=== PATIENT | female | born 1970 | race Caucasian/White ===

== ENCOUNTER 2016-07-15 14:46 | Emergency (ER) | payer MEDICAID ==
[2016-05-23 14:51] VITALS: BMI 34.5
[~2016-07-15 14:46] MED LIST: BIOTIN5 MG PO; CALCIUM 600 +1 EAC3 PO; CYCLOBENZAPRINE10 MG PO; DILAUDID2 MG PO; DILAUDID4 MG PO; ELIQUIS2.5 MG PO; HYDROCODONE-APA1 TAB PO; KEFLEX500 MG PO; LEXAPRO20 MG PO; MULTIPLE VITAMI1 TA1 PO; NICODERM C1 PATCH .1 TRANSDERM; NICODERM C1 PATCH .2 TRANSDERM; NORCO 7.5/325 T1 TA1 PO; ROBAXIN-750750 MG PO; SYNTHROID88 MCG PO; VANCOMYCIN250 MG/51 PO
== END 2016-07-15 17:27 | disposition left against medical advice (07) ==
LOC: D.ER 14:46
DX: R42 Dizziness and giddiness (principal)

== ENCOUNTER → 2016-07-28 08:08 | Outpatient (CLI) | payer MEDICAID ==
[2016-05-23 14:51] VITALS: BMI 34.5
== END | disposition home or self-care (01) ==
LOC: D.RAD 08:08
DX: S86.911A Strain of unspecified muscle(s) and tendon(s) at lower leg level, right leg, initial encounter (principal)

== ENCOUNTER → 2016-10-19 18:22 | Outpatient (CLI) | payer MEDICAID ==
[2016-05-23 14:51] VITALS: BMI 34.5
== END | disposition home or self-care (01) ==
LOC: D.MAMMO 14:00
DX: N64.4 Mastodynia (principal)

== ENCOUNTER → 2016-10-21 07:37 | Outpatient (CLI) | payer MEDICAID ==
[2016-05-23 14:51] VITALS: BMI 34.5
== END | disposition home or self-care (01) ==
LOC: D.RAD 07:37
DX: M25.511 Pain in right shoulder (principal)

== ENCOUNTER 2016-12-08 05:40 | Day surgery (SDC) | payer MEDICAID ==
[2016-12-07 13:26] LABS: HEMATOCRIT 43.5 % (36.0-48.0); MCH 34.3 pg (26.0-34.0); MCHC 34.5 g/dL (31.0-37.0); MCV 99.5 fL (80.0-100.0); MEAN PLATELET VOLUME 10.4 fL (7.4-10.4); RBC 4.37 10x6/uL (4.00-5.40); RDW 13.2 % (11.5-14.5); WBC 7.8 10x3/uL (4.8-10.8)
[~2016-12-08] VITALS: Ht 165.1 cm; Wt 93.0 kg
--- NOTE | ~2016-12-08 | OP ---
PATIENT NAME: CHAD PARKER MEDICAL RECORD: [id number] :68 LOCATION:D.OPS ADMISSION DATE: SURGEON: CHUCK NOGUEIRA MD DATE OF OPERATION: 12/08/2016 PREOPERATIVE DIAGNOSIS: Rotator cuff tear of the right shoulder, status post total shoulder arthroplasty. POSTOPERATIVE DIAGNOSIS: Rotator cuff tear of the right shoulder, status post total shoulder arthroplasty. PROCEDURES: 1. Right shoulder arthroscopy with arthroscopic evaluation. 2. Open rotator cuff repair. SURGEON: Chuck Nogueira MD. ANESTHESIA: General. INTRAOPERATIVE COMPLICATIONS: None. SUMMARY OF PATHOLOGIC FINDINGS: The total shoulder arthroplasty appeared to be well fixed as did the glenoid component. The patient did have a rotator cuff tear that was visualized from the implant surface side; however, it required mini arthrotomy for rotator cuff repair. OPERATIVE SUMMARY IN DETAIL: After obtaining the appropriate preoperative orthopedic surgery consent as well as anesthetic consultation, evaluation and clearance, the patient was brought to the operating room and placed on the operating table in supine position. After general laryngeal mask was administered, the patient was placed in the left lateral decubitus position. All pressure points were well padded to include down leg peroneal pad as well as axillary roll. The patient was held firmly to the operating table using the vacuum pack suction system. Right upper extremity and shoulder were prepped and draped in routine sterile fashion. The arm was held in the Arthrex traction boom at 30 degrees of forward flexion, 30 degrees of abduction with 10 pounds of traction laterally. Arthroscopy was established in the glenohumeral joint from a posterior portal. Anterior portal was established in the anterior safe interval. Diagnostic arthroscopy did reveal the above findings, that is, the prosthesis and the glenoid component appeared to be stable without looseness. Attention was then turned to the subacromial space. While on the subacromial space, the patient had substantial amounts of scar tissue and adhesions. At this point, the decision was made to proceed with the mini arthrotomy. Anterolateral mini arthrotomy was created, taken down to the superficial and deep deltoid fascia for direct visualization of the rotator cuff tear. Combination of rongeurs, knife as well as the arthroscopic shaver were utilized to debride the rotator cuff and decorticate the lateral portion of the greater tuberosity. The prosthesis itself did not seem to be proud in any way. Two #2 FiberTapes were placed in an inverted mattress style fashion and each were anchored laterally with a 5.5 SwiveLock from Arthrex down both the anterior and posterior to the stem with good fixation. This resulted in excellent anatomic repair of the rotator cuff. Having completed this, the wound was copiously irrigated. Superficial and deep fascia were closed with #1 Vicryl, followed by 2-0 Vicryl and skin mine. Sterile dressings were applied. The patient was awakened and taken to the recovery room in stable condition. All final needle OPERATIVE REPORT [id number] CHAD PARKER and sponge counts were correct. TRANSINT:[id number] Voice Confirmation ID: [id number] DOCUMENT ID: [id number] MIRLANDE VARGAS, CHUCK REYES CC: [id number] DICTATION DATE: 12/08/161057 [facility] ATTENDANT: 12/08/162052 [facility] 12/08/16 [id number] [place] [address]
[~2016-12-08 05:40] MED LIST changes: +ATIVAN1 MG PO; +OXYCONTIN10 MG PO; +TRAZODONE HCL50 MG PO
[2016-12-08 07:25] VITALS: BP 116/71; Ht 165.1 cm; Wt 93.0 kg
[2016-12-08] MEDS ORDERED: OMEPRAZOLE40 MG PO (07:35)
[2016-12-08] MEDS ORDERED: PERCOCET 10/3251 TA1 PO (10:54)
--- NOTE | 2016-12-08 12:45 | NUR ---
1215 IV DC WITH CATHER TIP INTACT
== END 2016-12-08 13:10 | disposition home or self-care (01) ==
LOC: D.OPS 05:40 → D.PAN 07:30 → D.OPS 07:30
PROVIDERS: Anesthesiology
DX: M75.101 Unspecified rotator cuff tear or rupture of right shoulder, not specified as traumatic (principal); Z96.611 Presence of right artificial shoulder joint; Z01.812 Encounter for preprocedural laboratory examination

== ENCOUNTER 2017-01-21 13:25 | Emergency (ER) | payer MEDICAID ==
[2016-12-08 07:25] VITALS: BMI 34.1
[~2017-01-21 13:25] MED LIST changes: +OMEPRAZOLE40 MG PO; +PERCOCET 10/3251 TA1 PO
== END 2017-01-21 15:30 | disposition home or self-care (01) ==
LOC: D.ER 13:25
DX: F32.9 Major depressive disorder, single episode, unspecified (principal); Z86.59 Personal history of other mental and behavioral disorders; R11.0 Nausea; E03.9 Hypothyroidism, unspecified

== ENCOUNTER → 2017-03-23 13:16 | Outpatient (CLI) | payer MEDICAID ==
[2016-12-08 07:25] VITALS: BMI 34.1
[~2017-03-23 13:16] MED LIST changes: +SYNTHROID125 MCG PO; -SYNTHROID88 MCG PO
== END | disposition home or self-care (01) ==
LOC: D.MRI 13:16
DX: M54.16 Radiculopathy, lumbar region (principal)

== ENCOUNTER 2017-04-11 10:50 | Day surgery (SDC) | payer MEDICAID ==
[2017-04-11] MEDS ORDERED: HYDROCODONE-APA1 TAB PO (11:27)
[2017-04-11 11:34] VITALS: BMI 30.3
--- NOTE | 2017-04-12 10:11 | PRO ---
PATIENT:CHAD MOULTON MEDICAL RECORD: [id number] : 68 LOCATION:[facility] ADMISSION DATE: 04/11/17 PROCEDURE PERFORMED BY: MAGGIE RINCON MD DATE OF PROCEDURE: 04/11/2017 Ms. Moulton is a 46-year-old female, who is referred by Dr. Tom Hayden for left leg radiculopathy and hip pain. 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 The patient relates that she is having hip discomfort and some radiation into her left leg. The patient has been seen by Dr. Tom Hayden and worked up. MRI of the back suggests that patient has significant disc disease along multiple levels from T12-L1, L1-L2, L4-L5 and L5-S1. The patient has illtc-qg-yaxxmdcw bulging discs along those levels with no impingement on cord though. The patient presents today with a pain level of 8/10. The patient does relate that it has been there for about 3 months. The patient is looking for resolution and evaluation of pain. After evaluating the patient, it should be noted that the patient is currently on no anticoagulation medication. THE PATIENT HAS ALLERGIES TO BACTRIM, ERYTHROMYCIN, PEPCID AND LATEX. The patient currently also has no heart disease, cardiovascular or lung disease. The patient is a well-proportioned female. Risks and benefits were explained to the patient including risk of infection, bleeding and damage to underlying structures. The patient understands and accepts. The patient has had an epidural in the past for labor and understands the risk involved. The patient was placed in sitting position, Betadine prepped and draped. The patient had local anesthetic of 1% lidocaine used to raise a skin wheal over the L4-L5 area. A total of 10 mL of solution was injected which included 0.25% bupivacaine along with 80 mg Depo-Medrol and approximately 5 mL of sterile saline to bring it to a total volume of 10 mL. The epidural space was located with a loss of resistance technique with 17-gauge Tuohy needle. After loss of resistance location of the epidural space, the solution of 10 mL was injected via the Tuohy needle into the epidural space at that time. Needle was removed. The patient tolerated the procedure well. Upon examination, I also felt that the patient may have some SI joint involvement on the left side. Palpation over the SI joint elicited severe discomfort. Discussed the patient SI joint injection and she said absolutely. Risks and benefits again were explained with the patient. The patient consents to have the SI joint injected on the left side. We were able to use another 10 mL of 0.25% bupivacaine along with 80 mg Depo-Medrol. After skin wheal, a 1% lidocaine was raised over the left SI joint area and a 22-gauge spinal needle was then used under ultrasound guidance to locate the left SI joint and the medication of 0.25% bupivacaine along with 80 mg Depo-Medrol 10 mL was injected into the left SI joint area. The patient seemed to respond to the therapy and discomfort diminished from 8/10 to 4/10 after injection series. It should be noted that the patient is to be followed up in 1 week. The patient was discharged home. The patient tolerated the procedure well. TRANSINT:[id number] Voice Confirmation ID: [id number] DOCUMENT ID: [id number] PROCEDURE NOTE [id number] CHAD MOULTON FARRELL MD at 1011 CC: [id number] DICTATION DATE: 04/11/17 1428 BOX LIDDER: 04/11/17 2257 [facility] 04/11/17 [address] [place] [address]
== END 2017-04-11 13:55 | disposition home or self-care (01) ==
LOC: D.OPS 10:50
DX: M53.3 Sacrococcygeal disorders, not elsewhere classified (principal)

== ENCOUNTER 2017-04-19 12:45 | Day surgery (SDC) | payer MEDICAID ==
[2017-04-19 14:24] VITALS: BP 134/95; BMI 30.3
== END 2017-04-19 14:30 | disposition home or self-care (01) ==
LOC: D.OPS 12:45
DX: M53.3 Sacrococcygeal disorders, not elsewhere classified (principal); Z01.812 Encounter for preprocedural laboratory examination

== ENCOUNTER 2017-04-26 11:43 | Day surgery (SDC) | payer MEDICAID ==
[2017-04-26 12:46] VITALS: BP 114/71; BMI 30.3
== END 2017-04-26 14:10 | disposition home or self-care (01) ==
LOC: D.OPS 11:43
DX: M53.3 Sacrococcygeal disorders, not elsewhere classified (principal); M54.5 Low back pain

== ENCOUNTER → 2017-05-03 12:49 | Day surgery (SDC) | payer MEDICAID ==
[~2017-05-03] VITALS: Ht 165.1 cm; Wt 98.2 kg
[2017-05-03 14:01] VITALS: BP 124/70; Ht 165.1 cm; Wt 98.2 kg
== END | disposition home or self-care (01) ==
LOC: D.OPS 12:49
DX: S39.012A Strain of muscle, fascia and tendon of lower back, initial encounter (principal); Z01.812 Encounter for preprocedural laboratory examination

== ENCOUNTER → 2017-10-02 10:40 | Outpatient (CLI) | payer MEDICAID ==
[2017-05-03 14:01] VITALS: BMI 36.0
== END | disposition home or self-care (01) ==
LOC: D.NM 10:40
DX: M53.3 Sacrococcygeal disorders, not elsewhere classified (principal); M25.551 Pain in right hip

== ENCOUNTER → 2018-01-22 16:46 | Outpatient (CLI) | payer MEDICAID ==
[2017-05-03 14:01] VITALS: BMI 36.0
== END | disposition home or self-care (01) ==
LOC: D.MRI 16:46
DX: M54.16 Radiculopathy, lumbar region (principal)

== ENCOUNTER 2018-03-08 10:31 | Emergency (ER) | payer MEDICAID ==
[~2018-03-08] VITALS: Ht 165.1 cm; Wt 87.7 kg
[2018-03-08 10:40] VITALS: BP 150/92; Ht 165.1 cm; Wt 87.7 kg
== END 2018-03-08 14:36 | disposition home or self-care (01) ==
LOC: D.ER 10:31
DX: M79.1 Myalgia (principal); M25.551 Pain in right hip; F17.200 Nicotine dependence, unspecified, uncomplicated

== ENCOUNTER 2018-03-09 05:18 | Emergency (ER) | payer MEDICAID ==
[~2018-03-09] VITALS: Ht 165.1 cm; Wt 87.7 kg
[2018-03-09 05:23] VITALS: Ht 165.1 cm; Wt 87.7 kg
[2018-03-09 07:52] VITALS: BP 142/89
== END 2018-03-09 07:53 | disposition home or self-care (01) ==
LOC: D.ER 05:18
DX: M79.1 Myalgia (principal); M25.551 Pain in right hip; Z91.81 History of falling; F17.200 Nicotine dependence, unspecified, uncomplicated

== ENCOUNTER → 2018-04-09 07:16 | Outpatient (CLI) | payer MEDICAID ==
[2018-03-09 05:23] VITALS: BMI 32.1
== END | disposition home or self-care (01) ==
LOC: D.PT 07:16
DX: S72.111D Displaced fracture of greater trochanter of right femur, subsequent encounter for closed fracture with routine healing (principal); W19.XXXD Unspecified fall, subsequent encounter

== ENCOUNTER 2018-08-09 11:30 | Outpatient (CLI) | payer MEDICARE, MEDICAID ==
[~2018-08-09] VITALS: Ht 165.1 cm; Wt 107.3 kg
--- NOTE | ~2018-08-09 | HEMODYNAMI ---
PATIENT:CHAD PARKER MEDICAL RECORD: [id number] : 68 [id number] ADMISSION DATE: 08/09/18 Generatedon:08/10/20188:02 Patient name: CHAD PARKER Patient #: [id number] SSN: : 1970 Date of study: 08/10/2018 Page: Of Hemodynamic Procedure Report Patient Data Patient Demographics Procedure consent was obtained First Name: CHAD Gender: Female Last Name: ELENA : 1970 Middle Initial: MAE Age: 47 year(s) Patient #: [id number] Race: Unknown Additional ID: [id number] Contact details [address]: [address] [place] [address] State: [place] City: [place] Zip code: [address] Past Medical History Allergies Allergen Reaction Date Comments Reported Other allergy 08/10/2018 BACTRIM, ERYTHROMYCIN, PEPCID,FLONASE, DILAUDID, SULFA, LATEX Admission Admission Data Admission Date: 08/09/2018 Admission Time: 14:17 Room #: D.2119 Lab Results Lab Result Date: 08/10/2018 Lab Result Time: 0:00 Biochemistry Name Units Result Min Max BUN mg/dl 9 --(*---)-- 7 18 Creatinine mg/dl 0.9 --(-*--)-- 0.6 1.3 CBC Name Units Result Min Max Hemoglobin g/dl 15.6 --(--*-)-- 13.5 17.5 Procedure Procedure Types Cath Procedure Diagnostic Procedure LHC LHC w/Coronaries Sedation Charges Moderate Sedation up to 15 minutes PCI Procedure Coronary Stent Coronary Stent Initial Procedure Description Procedure Date Procedure Date: 08/10/2018 Procedure Start Time: 7:35 Procedure End Time: 7:58 Procedure Staff Name Function Catracho Jones MD Performing Physician Renee Kelley RN Nurse Jorden Allen RT Scrub Liliane Santiago RT Monitor Procedure Data Cath Procedure Fluoroscopy Diagnostic fluoroscopy Total fluoroscopy Time: 5.2 time: 5.2 min min Diagnostic fluoroscopy Total fluoroscopy dose: dose: 1069 mGy 1069 mGy Contrast Material Contrast Material Type Amount (ml) Isovue 300 100 Entry Location Entry Primary Successful Side Size Upsize Upsize Entry Closure Cifuentes ccessful Closure Location (Fr) 1 (Fr) 2 (Fr) Remarks Device Remarks Radial Right 6 Fr Mechanical artery Short Compression Estimated blood loss: 10 ml Diagnostic catheters Device Type Used For End Catheter Placement DIAGNOSTIC Ponemah 110cm 5 Procedure Fr catheter ([id number]) Procedure Complications No complications Procedure Medications Medication Administration Route Dosage Oxygen etCO2 Nasal cannula 2 l/min Lidocaine 2% added to field 20 Heparin Flush Bag added to field 2 bags (1000units/500ml NS) 0.9% NaCl I.V. 100 ml/hr Versed I.V. 2 mg Fentanyl I.V. 100 mcg Versed I.V. 1 mg Fentanyl I.V. 50 mcg Radial Cocktail I.A. 1 syringe (Verapomil 2mg/Nitro 400mcg/Heparin 1500units) Heparin Bolus I.V. 35389 units Versed I.V. 1 mg Fentanyl I.V. 50 mcg Effient P.O. 60 mg Hemodynamics Rest HGB: 15.6 (g/dl) Heart Rate: 77 (bpm) Pressure Samples Time Site Value (mmHg) Purpose Heart Use Rate(bpm) 7:39 LV 115/3,17 Snapshot 73 7:40 AO 105/71(85) Pullback 80 7:40 LV 110/0,18 Pullback 80 Gradients Valve Time Site 1 Site 2 Mean SEP/DFP Peak To Heart Use (mmHg) (sec/min) Peak Rate (mmHg) (bpm) Aortic 7:40 LV AO 4 4 5 80 110/0,18 105/71(85) Calculations Valve P-P Mean Valve Index Valve Source Name Gradient Area Flow (cm2) Aortic 5 4 5 4 Snapshots Pre Cath Intra NCS Post Cath Vital Signs Time Heart Resp SPO2 etCO2 NIBP (mmHg) Rhythm Pain Status Sedation Rate (ipm) (%) (mmHg) Level (bpm) 7:22:36 72 19 94 33 135/86(102) NSR 4 (11) , 10(A) Distressing 7:26:44 77 21 94 29.2 119/82(93) NSR 4 (11) , 10(A) Distressing 7:30:46 74 14 92 22.5 124/79(97) NSR 4 (11) , 10(A) Distressing 7:34:51 72 12 93 35.3 120/76(90) NSR 4 (11) , 10(A) Distressing 7:40:01 94 11 94 19.5 98/66(93) NSR 4 (11) , 9(A) Distressing 7:44:00 74 11 93 33 111/65(93) NSR 4 (11) , 9(A) Distressing 7:48:04 74 12 94 21.8 113/64(96) NSR 4 (11) , 9(A) Distressing 7:52:10 76 13 92 30 111/67(85) NSR 4 (11) , 9(A) Distressing 7:56:10 76 15 94 36 118/78(91) NSR 0 (11) , No 10(A) pain Medications Time Medication Route Dose Verified Delivered Reason Note s Effectiveness by by 7:18:20 Oxygen etCO2 2 l/min Catracho Buffie used for Nasal Robert Kelley RN procedure cannula 7:18:27 Lidocaine 2% added 20ml Catracho Catracho for local to vial Robert Jones MD anesthetic field 7:18:32 Heparin Flush added 2 bags Catracho Catracho used for Bag to Robert Jones MD procedure (1000units/500ml field NS) 7:18:40 0.9% NaCl I.V. 100 Catracho Buffie Per physician ml/hr Robert Kelley RN 7:29:29 Versed I.V. 2 mg Catracho Buffie for sedation Robert Kelley RN 7:29:35 Fentanyl I.V. 100 mcg Catracho Buffie for sedation Robert Kelley RN 7:34:54 Versed I.V. 1 mg Catracho Buffie for sedation Robert Kelley RN 7:34:58 Fentanyl I.V. 50 mcg Catracho Buffie for sedation Robert Kelley RN 7:37:29 Radial Cocktail I.A. 1 Catracho Catracho for (Verapomil syringe Robert Jones MD vasodilation 2mg/Nitro 400mcg/Heparin 1500units) 7:46:24 Heparin Bolus I.V. 10,000 Catracho Buffie for veri fied units Jones MD Kelley RN anticoagulation with dr jones 7:51:38 Versed I.V. 1 mg Catracho Duran for sedation Robert Kelley RN 7:51:42 Fentanyl I.V. 50 mcg Catracho Duran for sedation Robert Kelley RN 7:58:53 Effient P.O. 60 mg Catracho Duran for Robert Kelley RN antiplatelet therapy Procedure Log Time Note 7:01:06 Signed procedure consent form obtained from patient. 7:01:08 Diagnostic Cath status Elective 7:01:09 Time tracking: Regular hours (M-F 7:00 - 5:00) 7:01:15 Plan of Care:Hemodynamics will remain stable., Cardiac rhythm will remain stable., Comfort level will be maintained., Respiratory function will remain adequate., Patient/ family verbilizes understanding of procedure., Procedure tolerated without complication., Recovers from procedure without complications.. 7:01:22 Renee Kelley RN sent for patient. Start room use. 7:02:37 H&P Date Dictated: 08/09/2018 Within 30 days and on chart.. 7:04:50 Patient allergic to Other allergyBACTRIM, ERYTHROMYCIN, PEPCID,FLONASE, DILAUDID, SULFA, LATEX 7:05:58 Lab Result : Creatinine 0.9 mg/dl 7:05:58 Lab Result : BUN 9 mg/dl 7:05:58 Lab Result : Hemoglobin 15.6 g/dl 7:10:11 Patient received from Med II to CCL 1 Alert and oriented. Tansferred to table in Supine position. 7:10:12 Warm blankets applied, and portillo hugger turned on for patient comfort. 7:10:12 Correct patient and procedure confirmed by team. 7:10:13 ECG and BP/O2 sat monitors applied to patient. 7:18:20 Oxygen 2 l/min etCO2 Nasal cannula was administered by Renee Kelley RN; used for procedure; 7:18:27 Lidocaine 2% 20ml vial added to field was administered by Catracho Jones MD; for local anesthetic; 7:18:32 Heparin Flush Bag (1000units/500ml NS) 2 bags added to field was administered by Catracho Jones MD; used for procedure; 7:18:40 0.9% NaCl 100 ml/hr I.V. was administered by Renee Kelley RN; Per physician; 7:21:34 Vital chart was started 7:21:35 Baseline sample Acquired. 7:21:39 Rhythm: sinus rhythm 7:21:40 Full Disclosure recording started 7:21:40 Pre-procedure instructions explained to patient. 7:21:41 Pre-op teaching completed and patient verbalized understanding. 7:21:42 Family in patients room. 7:21:44 Patient NPO since Midnight. 7:21:46 Is patient on blood thinner?No 7:21:48 Patient diabetic? No. 7:21:49 Patient not . Patient has had hysterectomy. 7:21:52 Previous problem with sedation/anesthesia? No ? 7:21:53 Snore? Yes 7:21:54 Sleep apnea? No 7:21:55 Deviated septum? No 7:21:55 Opens mouth fully? Yes 7:21:56 Sticks out tongue? Yes 7:21:58 Airway obstruction? No ? 7:22:09 Dentures? No ? 7:22:13 Modified Alon's test Ulnar < 7 seconds 7:22:15 Patient pain scale 4/10 ?. 7:22:43 IV patent on arrival in left antecubital with 0.9% NaCl at [facility]. 7:22:45 Lab results completed and on chart. 7:22:48 Right Radial & Right Groin area was prepped with chlora-prep and draped in sterile fashion 7:22:49 Alarms reviewed by R. N. 7:22:49 Sharps counted by scrub and verified by R.N. 7:22:52 Use device set Radial Dx or PCI 7:22:53 ACIST Syringe (37025) opened to sterile field. 7:22:53 Medline Cath Pack ([id number]) opened to sterile field. 7:22:54 ACIST Hand Control (87476) opened to sterile field. 7:22:54 ACIST Manifold (08826) opened to sterile field. 7:22:55 Tegaderm 4 x 4 (1626W) opened to sterile field. 7:22:57 Bag Decanter (2001S) opened to sterile field. 7:22:57 DIAGNOSTIC WIRE .035 260cm J wire (463423) opened to sterile field. 7:22:58 MBrace Wrist Support ([id number]) opened to sterile field. 7:22:59 NEEDLE Cook 21G 4cm Radial (O65772) opened to sterile field. 7:23:00 SHEATH 6FR Slender (46-5118) opened to sterile field. 7:: --------ALL STOP TIME OUT------ 7::24 Final Timeout: patient, procedure, and site verified with staff and physician. All members of the team are in agreement. 7:: Right Radial & Right Groin site verified by team. 7:: Fire Safety Assessment: A--An alcohol-based skin anteseptic being used preoperatively., C--Open oxygen or nitrous oxide is being used., D--An ESU, laser, or fiber-optic light is being used. 7::31 Physical assessment completed. ASA score P 2 - A patient with mild systemic disease as per Catracho Jones MD. 7::34 Sedation plan: IV Moderate Sedation Medication:Versed, Fentanyl 7:29:29 Versed 2 mg I.V. was administered by Renee Kelley RN; for sedation; 7::35 Fentanyl 100 mcg I.V. was administered by Renee Kelley RN; for sedation; 7:29:41 Zero performed for pressure channel P1 7:29:52 Zero performed for pressure channel P1 7:29:55 Zero performed for pressure channel P1 7:30:09 Zero performed for pressure channel P1 7:31:45 Zero performed for pressure channel P1 7:34:50 Zero performed for pressure channel P1 7:34:54 Versed 1 mg I.V. was administered by Renee Kelley RN; for sedation; 7:34:58 Fentanyl 50 mcg I.V. was administered by Renee Kelley RN; for sedation; 7:35:18 Procedure started. 7:35:41 Local anesthetic to right radial artery with Lidocaine 2% by Catracho Jones MD.INITIAL ACCESS ONLY 7:36:55 A 6 Fr Short sheath was inserted into the Right Radial artery 7:37:29 Radial Cocktail (Verapomil 2mg/Nitro 400mcg/Heparin 1500units) 1 syringe I.A. was administered by Catracho Jones MD; for vasodilation; 7:37:29 A DIAGNOSTIC Ponemah 110cm 5 Fr catheter (103754) was advanced over the wire and used for Procedure. 7:38:47 Injector settings: Ml/sec: 51, Volume: 15, 7:38:58 LV gram done using GREENE 7:39:22 LV hemodynamics recorded. 7:39:48 EF : 55 % 7:41:08 LCA angiography performed. 7:42:17 RCA angiography performed. 7:42:40 Catheter exchanged over wire. 7:43:08 TUBING High Pressure Extension Tubing (Robert) ([id number]) opened to sterile field. 7:43:09 BMW 300cm Straight [place] 2 wire (1747025) opened to sterile field. 7:43:10 INFLATOR Merit BasixCompak (PN7261) opened to sterile field. 7:43:28 GUIDE 6FR AR 1.0 catheter ([id number]) opened to sterile field. 7:44:46 6 Fr AR 1 guide catheter was inserted over the wire 7:46:24 Heparin Bolus 10,000 units I.V. was administered by Renee Kelley RN; for anticoagulation; verified with dr jones 7:48:29 BMW 300 wire advanced. 7:48:53 Wire advanced across lesion. 7:51:38 Versed 1 mg I.V. was administered by Renee Kellye RN; for sedation; 7:51:42 Fentanyl 50 mcg I.V. was administered by Renee Kelley RN; for sedation; 7:52:22 Place stent Inflation Number: 1 A INTEGRITY OTW 3.5 X 22 stent ([id number]) was prepped and advanced across the Prox RCA. The stent was deployed at 14 NASIM for 0:10 (min:sec). 7:52:42 Stent catheter was removed intact over wire. 7:52:43 Wire removed. 7:52:43 Guide catheter removed. 7:53:29 Procedure ended.(Physican Out) 7:54:46 TR BAND Large ([id number]) opened to sterile field. 7:54:55 Sheath removed intact; hemostasis achieved with Mechanical Compression to the Right Radial artery. 7:55:25 Fluoroscopy time 05.20 minutes. 7:55:30 Fluoroscopy dose: 1069 mGy 7:55:30 Flurop Dose total: 1069 7:55:33 Contrast amount:Isovue 300 100ml. 7:55:38 TR band inflated with 10cc of air. 7:57:08 Post-procedure physical assessment completed. ASA score P 2 - A patient with mild systemic disease as per Catracho Jones MD. 7:57:12 Post procedure rhythm: sinus rhythm 7:57:13 Estimated blood loss: 10 ml 7:57:15 Post procedure instruction explained to patient.Patient verbalizes understanding. 7:57:15 Patient needs reinforcement of post procedure teaching. 7:57:43 Procedure type changed to Cath procedure, Diagnostic procedure, LHC, LHC w/Coronaries, Sedation Charges, Moderate Sedation up to 15 minutes, PCI procedure, Coronary Stent, Coronary Stent Initial 7:58:33 Procedure and supply charges have been captured, reviewed, submitted and are correct. 7:58:35 Procedure Complication : No complications 7:58:37 Vital chart was stopped 7:58:37 See physician's report for complete and final results. 7:58:39 Report given to PCU. 7:58:41 Patient transfered to PCU with Bed. 7:58:43 Procedure ended. 7:58:43 Full Disclosure recording stopped 7:58:46 End room use (Document Last) 7:58:53 Effient 60 mg P.O. was administered by Renee Kelley RN; for antiplatelet therapy; Intervention Summary Intervention Notes Time ActionType Lesion and Equipment Action# Pressure Duration Attributes Used 7:52:22 Place stent Prox RCA INTEGRITY 1 14 00:10 OTW 3.5 X 22 stent ([id number]) Device Usage Item Name Manufacture Quantity Catalog Hospital Part Current Minimal Lot# / Number Charge Number Stock Stock Serial# Code ACIST Acist 1 01613 381520 949939 875959 20 Syringe Medical (36350) Systems Inc Medline Medline 1 [id number] 388665 85611 475604 5 Cath Pack ([id number]) ACIST Hand Acist 1 26776 162479 269116 196719 5 Control Medical (55890) Systems Inc ACIST Acist 1 07647 091864 550249 397751 5 Manifold Medical (96700) Systems Inc Tegaderm 4 3M 1 1626W 501859 510696 295813 5 x 4 (1626W) Bag Microtek 1 2001S 547937 55395 211316 5 Decanter Medical Inc. () DIAGNOSTIC [facility] [place] 1 286024 201363 279686 000506 30 WIRE .035 260cm J wire (184358) MBrace Advanced 1 140-0250-00 752641 48150 945788 5 Wrist Vascular Support Dynamics ([id number]) NEEDLE Cook Cook Medical 1 A73153 031484 844086 858223 5 21G 4cm Radial (C19818) SHEATH 6FR Terumo 1 [id number] 995448 791206 766999 5 Slender (80-1060) DIAGNOSTIC Terumo 1 40-5013 218386 739910 353085 5 Ponemah 110cm 5 Fr catheter (035148) TUBING High Merit 1 [id number] 975928 33803 199413 10 Pressure Medical Extension Tubing (Jones) (MB9415E) BMW 300cm Harris 1 6336929 639346 040938 959369 5 Straight Vascular [place] 2 wire (4128614) INFLATOR Merit 1 DI6794 128087 640765 889329 15 [facility] Medical BasixCompak (AA7812) GUIDE 6FR Medtronic 1 [id number] 652169 88474 929370 1 AR 1.0 catheter (SH9TP74) INTEGRITY Medtronic 1 [id number] 648605 882701 210294 3 [id number] OTW 3.5 X 22 stent ([id number]) TR BAND Terumo 1 [id number] 810726 607591 150485 40 Large ([id number]) Signature Audit [place] Stage Time Signature Unsigned Intra-Procedure 08/10/2018 Liliane Santiago 8:02:00 AM RT(R) Signatures Monitor : Liliane Santiago Signature : RT Date : Time : [facility] [address] [place] [address]
[2018-08-09] MEDS ORDERED: TYLENOL W/CODEI1 TAB PO (11:48)
[2018-08-09] MEDS ORDERED: LIPITOR10 MG PO (11:48)
[2018-08-09 12:25] LABS: BASOPHILS 0.1 % (0-2); EOSINOPHILS 0.8 % (0-7); HEMATOCRIT 45.4 % (36.0-48.0); HEMOGLOBIN 15.6 g/dL (12-16); IMMATURE GRANULOCYTES 0.2 % (0-5); LYMPHOCYTES 29.2 % (15-50); MCH 33.8 pg (26.0-34.0); MCHC 34.4 g/dL (31.0-37.0); MCV 98.5 fL (80.0-100.0); MEAN PLATELET VOLUME 9.6 fL (7.4-10.4); MONOCYTES 10.8 % (2-11); NEUTROPHILS 58.9 % (40-80); PLATELET COUNT 196 10x3/uL (130-400); RBC 4.61 10x6/uL (4.00-5.40); RDW 13.8 % (11.5-14.5); WBC 8.7 10x3/uL (4.8-10.8)
--- NOTE | 2018-08-09 12:32 | NUR ---
NITRO PATCH TO L CHEST
[2018-08-09 12:40] LABS: ALBUMIN 3.6 g/dL (3.4-5.0); ALKALINE PHOSPHATASE 105 U/L (46-116); ALT (SGPT) 35 U/L (10-68); BILIRUBIN - TOTAL 0.29 mg/dL (0.2-1.3); CALC OSMOLALITY 280 mosm/kg (275-300); CALCIUM 9.3 mg/dL (8.5-10.1); CARBON DIOXIDE 22.5 mmol/L (21.0-32.0); CHLORIDE - SERUM 105 mmol/L (98-107); CREATININE - SERUM 0.9 mg/dL (0.6-1.3); GLUCOSE 111 mg/dL (74-106); POTASSIUM - SERUM 3.7 mmol/L (3.5-5.1); PROTEIN - SERUM 7.7 g/dL (6.4-8.2); SODIUM 141 mmol/L (136-145); UREA NITROGEN 9 mg/dL (7-18); eGFR NON AFRICAN AMERICAN 71 mL/min (90-120)
[2018-08-09 12:51] LABS: CKMB 8.9 U/L (0.0-3.6); CREATINE KINASE 467 UL (21-215); TROPONIN-I < 0.017 ng/mL (0.000-0.060)
[2018-08-09 13:24] VITALS: BP 115/66
--- NOTE | 2018-08-09 13:24 | NUR ---
PATIENT RESTING, SEMI FOWLERS. RESPIRATIONS EVEN AND UNLABORED. PT REPORTS CP IS A 3/10. WILL CONTINUE TO MONITOR.
[2018-08-09 16:54] VITALS: BP 136/89; Ht 165.1 cm; Wt 107.3 kg
[2018-08-09 17:12] LABS: CKMB 6.8 U/L (0.0-3.6); CREATINE KINASE 419 UL (21-215); TROPONIN-I < 0.017 ng/mL (0.000-0.060)
[2018-08-09 17:17] LABS: CALC OSMOLALITY 277 mosm/kg (275-300); CALCIUM 9.3 mg/dL (8.5-10.1); CARBON DIOXIDE 23.2 mmol/L (21.0-32.0); CHLORIDE - SERUM 105 mmol/L (98-107); CREATININE - SERUM 0.8 mg/dL (0.6-1.3); GLUCOSE 104 mg/dL (74-106); POTASSIUM - SERUM 4.2 mmol/L (3.5-5.1); SODIUM 140 mmol/L (136-145); UREA NITROGEN 11 mg/dL (7-18); eGFR NON AFRICAN AMERICAN 81 mL/min (90-120)
--- NOTE | 2018-08-09 19:30 | NUR ---
RESUMING PATIENT CARE. PATIENT IS ALERT AND ORIENTED. RESPIRATIONS ARE EVEN AND UNLABORED. NO S/S OF DISTRESS. NO C/O PAIN. DENIES NEEDS AT THIS TIME. CALL LIGHT WITHIN REACH. WILL CPOC.
[2018-08-09 20:00] VITALS: BP 131/98
[2018-08-09 22:43] LABS: BASOPHILS 0.1 % (0-2); EOSINOPHILS 1.9 % (0-7); HEMATOCRIT 41.6 % (36.0-48.0); IMMATURE GRANULOCYTES 0.2 % (0-5); LYMPHOCYTES 36.1 % (15-50); MCH 33.3 pg (26.0-34.0); MCHC 33.7 g/dL (31.0-37.0); MCV 98.8 fL (80.0-100.0); MEAN PLATELET VOLUME 9.6 fL (7.4-10.4); MONOCYTES 12.4 % (2-11); NEUTROPHILS 49.3 % (40-80); PLATELET COUNT 179 10x3/uL (130-400); RBC 4.21 10x6/uL (4.00-5.40); RDW 13.9 % (11.5-14.5); WBC 8.3 10x3/uL (4.8-10.8)
[2018-08-09 23:10] LABS: CKMB 5.5 U/L (0.0-3.6); CREATINE KINASE 357 UL (21-215); TROPONIN-I < 0.017 ng/mL (0.000-0.060)
[2018-08-10 00:50] VITALS: BP 95/58
[2018-08-10 05:35] VITALS: BP 109/65
--- NOTE | 2018-08-10 07:00 | NUR ---
ASSESSMENT DONE. DENIES NEEDS.
--- NOTE | 2018-08-10 07:06 | NUR ---
TO MANAGER WIRELESS PER BED
--- NOTE | 2018-08-10 08:15 | NUR ---
RECIVED FROM CATH WITH TR-BAND TO RIGHT WRIST.
--- NOTE | 2018-08-10 09:45 | MORECARE ---
CASE MANAGEMENT DISCHARGE SUMMARY PATIENT: CHAD PARKER MAE UNIT: [id number] ADM DATE: 08/09/18 AGE: 47 : [birth year] SEX: F ROOM/BED: D.6529 AUTHOR: CELESTINO KULKARNI PHYSICIAN: REFERRING PHYSICIAN: SHARMAINE HUGHES M.D. DATE OF SERVICE: 08/10/18 Discharge Plan Patient Name: CHAD PARKER Facility: [facility]:[place] : 1970 Planned Disposition: Home Anticipated Discharge Date: 08/10/18 Discharge Date: Expected LOS: 1 Initial Reviewer: [email or web address] Initial Review Date: 08/10/2018 Generated: 08/10/18 10:45 am Coverage Notice Reviewer: [email or web address] Mimi Sheets Notice Issued Date-Time: 08/09/2018 14:10 Notice Type: Medicare Outpatient Observation Notice Notice Delivered To: Patient Relationship to Patient: Drink Box Mechanic Name: Delivery Method: HAND - Hand Delivered Damaris Days: Prior Verbal Notification: Recipient Understood Notice: Yes Recipient Signature: Yes Med Rec Note Co-signed by Attending: Coverage Notice Comment: Patient Name: HCAD PARKER Page 53066 at 0945 All edits/amendments must be made on the electronic document DICTATION DATE: 08/10/18944 CONFIGURATION ENGINEER: NORY 08/10/18944 RPT#: [id number] DC DATE: STATUS: ADM IN [facility] [address] [place] [address] END OF REPORT
--- NOTE | 2018-08-10 10:47 | NUR ---
RIGHT WRIST STABLE WITH TR BAND INTACT. TELEMETRY SR 74. WILL CONT. PLAN OF CARE.
[2018-08-10] MEDS ORDERED: EFFIENT10 MG PO (11:06)
[2018-08-10] MEDS ORDERED: TOPROL XL25 MG PO (11:07)
[2018-08-10] MEDS ORDERED: ASPIRIN81 MG PO (11:08)
--- NOTE | 2018-08-10 11:46 | NUR ---
REVIEWED AND AGREE WITH ASSESMENT.
--- NOTE | 2018-08-10 14:02 | NUR ---
DC GIVEN TO PT
--- NOTE | 2018-08-10 14:05 | NUR ---
DC HOME PER PERSONAL CAR
--- NOTE | 2018-08-14 11:18 | EC ---
PATIENT:CHAD PARKER DATE OF SERVICE: 08/09/18 SEX: F MEDICAL RECORD: [id number] DATE OF : 68 LOCATION:D.M2 D.211 AGE OF PATIENT: 47 ADMISSION DATE: 08/09/18 REFERRING PHYSICIAN: INTERPRETING PHYSICIAN: MIREYA RIVERA MD ECHOCARDIOGRAM REPORT ECHO CHARGES 4 ECHO COMPLETE Date: 08/10/18 CLINICAL DIAGNOSIS: CHEST PAIN/CAD ECHOCARDIOGRAPHIC MEASUREMENTS (adult normal given) AC root (d.<3.7cm) 3.4 cm LV Septum d (<1.2 cm> 1.4 cm Valve Excursion 1.4 cm LV Septum (systole) 1.6 cm Left Atria (s.<4.0cm> 3.1 cm LVPW d(<1.2cm) 1.7 cm RV (d.<2.3cm) 3.5 cm LVPW (sytole) 1.7 cm LV diastole(<5.6CM) 5.0 cm MV E-F(>70mm/sec) cm LV systole 3.8 cm LVOT Diameter 2.0 cm MV exc.(>10mm) 1.5 cm Est.ejection fraction (50-75%) % DOPPLER: LVIT cm/sec A 54.0 cm/sec E 42.0 cm/sec LA cm/sec RVSP 21 mmHg LVOT 78 cm/sec AOP1/2T m/s Asc. Ao 103 cm/sec RVOT 75 cm/sec RA cm/sec PA 101 cm/sec AV Gradient Peak 4.27 mmHg AV Mean 2.21 mmHg AV Area 2.3 cm MV Gradient Peak 3.23 mmHg MV Mean 1.21 mmHg MV Area cm COMMENTS: Ship'S Electronic Warfare Officer: Srinath CORTEZ Bread And Pastry Baker: Srinath Jones TAPE# PACS Pericardial Effusion N DATE OF SERVICE: 08/10/2018 Echocardiogram FINDINGS: 1. Left ventricular chamber size is within normal limits. Left ventricular systolic function is normal. Overall ejection fraction estimated at 60%. 2. Left atrium, right atrium, and right ventricle chamber sizes are within normal limits. 3. Valvular structures have normal structure and motion. ECHOCARDIOGRAM REPORT [id number] CHAD PARKER 4. Doppler interrogation reveals only trace tricuspid regurgitation, no other valvular insufficiency, or stenosis and pulmonary systolic pressure is estimated at 21 mmHg. 5. No evidence of pericardial effusion or left ventricular thrombus. TRANSINT:[id number] Voice Confirmation ID: [id number] DOCUMENT ID: [id number] MIREYA RIVERA MD at 1118 CC: [id number] DICTATION DATE: 08/10/18 1515 TEXTILE TECHNICAL OFFICER: 08/10/18 2257 DIS IN 08/10/18 [place] [id number] [place] [address]
== END 2018-08-10 14:05 | disposition home or self-care (01) ==
LOC: OBSVTIME → D.ER 11:30 → D.OPS 11:30 → D.ER 14:17 → D.EDHOLD 14:17 → D.M2 14:17 → D.EDHOLD 14:18 → D.M2 14:18 → OBSVTIME 14:18 → D.ER 15:48 → EDSTATUS 08-10 08:30 → D.OPS 08-10 14:05 → D.M2 08-10 14:05
PROVIDERS: Emergency Medicine; Internal Medicine Cardiovascular Disease
DX: I10 Essential (primary) hypertension (principal); F17.200 Nicotine dependence, unspecified, uncomplicated; I25.110 Atherosclerotic heart disease of native coronary artery with unstable angina pectoris

== ENCOUNTER 2018-10-07 08:16 | Emergency (ER) | payer MEDICARE, MEDICAID ==
[~2018-10-07] VITALS: Ht 165.1 cm; Wt 100.0 kg
[~2018-10-07 08:16] MED LIST changes: +ASPIRIN81 MG PO; +EFFIENT10 MG PO; +LIPITOR10 MG PO; +TOPROL XL25 MG PO; +TYLENOL W/CODEI1 TAB PO
[2018-10-07 08:18] VITALS: Ht 165.1 cm; Wt 100.0 kg
[2018-10-07] MEDS ORDERED: HYDROCODON-ACE1 EAC2 PO (10:10)
[2018-10-07 10:20] VITALS: BP 165/99
== END 2018-10-07 10:20 | disposition home or self-care (01) ==
LOC: D.ER 08:16
DX: S82.401A Unspecified fracture of shaft of right fibula, initial encounter for closed fracture (principal)

== ENCOUNTER 2019-01-12 14:38 | Inpatient (IN) | payer MEDICARE, MEDICAID ==
[~2019-01-12] VITALS: Ht 165.1 cm; Wt 112.2 kg
[2019-01-12] VITALS (12 sets, daily range): BP systolic 124–163; BP diastolic 65–100; Ht 165.1 cm; Wt 112.2 kg
--- NOTE | ~2019-01-12 | HEMODYNAMI ---
PATIENT:CHAD PARKER MEDICAL RECORD: [id number] : 68 [id number] ADMISSION DATE: 01/12/19 Generatedon:01/12/201916:34 Patient name: CHAD PARKER Patient #: [id number] SSN: : 1970 Date of study: 01/12/2019 Page: Of Hemodynamic Procedure Report Patient Data Patient Demographics Procedure consent was obtained First Name: CHAD Gender: Female Last Name: ELENA : 1970 [facility] Initial: MAE Age: 48 year(s) Patient #: [id number] Race: Unknown Additional ID: [id number] Contact details Address: [address] [place] [address] State: [place] City: [place] Zip code: [address] Past Medical History Allergies Allergen Reaction Date Comments Reported Other allergy 08/10/2018 BACTRIM, ERYTHROMYCIN, PEPCID,FLONASE, DILAUDID, SULFA, LATEX Other allergy 01/12/2019 See Chart Admission Admission Data Admission Date: 01/12/2019 Admission Time: 14:38 Admit Source: Emergency department Height (in.): 64.96 BSA: 2.17 (m2) Height (cm.): 165 BMI: 41.62 (kg/m2) Weight (lbs.): 249.79 Weight (kg.): 113.3 Lab Results Lab Result Date: 01/12/2019 Lab Result Time: 0:00 Biochemistry Name Units Result Min Max BUN mg/dl 10 --(-*--)-- 7 18 Creatinine mg/dl 1.1 --(--*-)-- 0.6 1.3 CBC Name Units Result Min Max Hemoglobin g/dl 16.8 --(---*)-- 13.5 17.5 Procedure Procedure Types Cath Procedure Diagnostic Procedure LHC LH w/Coronaries PCI Procedure AMI/SVG/HALL WORKER PTCA or Stent PTCA PTCA Initial Procedure Description Procedure Date Procedure Date: 01/12/2019 Procedure Start Time: 16:00 Procedure End Time: 16:29 Procedure Staff Name Function Renee Kelley RN Nurse Anthony Carl MD Performing Physician Rufus Connelly RT Scrub Claudia Portillo RT Monitor Procedure Data Cath Procedure Fluoroscopy Diagnostic fluoroscopy Total fluoroscopy Time: 5.1 time: 5.1 min min Diagnostic fluoroscopy Total fluoroscopy dose: 851 dose: 851 mGy mGy Contrast Material Contrast Material Type Amount (ml) Isovue 370 93 Entry Location Entry Primary Successful Side Size Upsize Upsize Entry Closure Succes sful Closure Location (Fr) 1 (Fr) 2 (Fr) Remarks Device Remarks Femoral Right 6 Fr Exoseal artery Short Estimated blood loss: 10 ml Diagnostic catheters Device Type Used For End Catheter Placement DIAGNOSTIC JL 4.0 5Fr Procedure catheter ([id number]) DIAGNOSTIC Pigtail 5Fr Procedure catheter ([id number]) Procedure Complications No complications Procedure Medications Medication Administration Route Dosage Oxygen etCO2 Nasal cannula 3 l/min Lidocaine 2% added to field 20 Heparin Bolus I.V. 3000 units Zofran I.V. 4 mg Versed I.V. 2 mg Fentanyl I.V. 100 mcg Atropine I.V. 2 mg Integrilin (Bolus I.V. 10.2 ml 2mg/ml) Integrilin Drip I.V. drip 18.2 ml/hr (75mg/100ml) 0.9% NaCl 100 ml/hr Heparin Flush Bag added to field 2 bags (1000units/500ml NS) Hemodynamics Rest BSA: 2.17 (m2) HGB: 16.8 (g/dl) O2 Consumption: Estimated: 220.81 (ml/min) O2 Co nsumption indexed: Estimated:101.76 (ml/min/m) Heart Rate: 79 (bpm) Pressure Samples Time Site Value (mmHg) Purpose Heart Use Rate(bpm) 16:18 LV 121/31,31 Snapshot 95 16:18 LV 129/31,31 Snapshot 95 16:19 AO 133/87(110) Pullback 95 Gradients Valve Time Site Site 2 Mean SEP/DFP Peak To Heart Use 1 (mmHg) (sec/min) Peak Rate (mmHg) (bpm) Aortic 16:19 LV AO 35 38 95 133/87(110) Calculations Valve P-P Mean Valve Index Valve Source Name Gradient Area Flow (cm2) Aortic 35 35 Snapshots Pre Cath Intra NCS Post Cath Vital Signs Time Heart Resp SPO2 etCO2 NIBP (mmHg) Rhythm Pain Status Sedation Rate (ipm) (%) (mmHg) Level (bpm) 15:57:30 79 11 99 0 Measuring NSR w/ ST 10 (11) , 10(A) Elevation Unimaginable unspeakable 15:58:33 80 18 100 0 186/106(148) NSR w/ ST 10 (11) , 10(A) Elevation Unimaginable unspeakable 16:03:16 81 16 98 0 178/108(150) NSR w/ ST 10 (11) , 10(A) Elevation Unimaginable unspeakable 16:07:44 128 21 99 0 141/99(114) NSR w/ ST 6 (11) , 10(A) Elevation Intense 16:12:15 102 16 94 0 124/84(106) NSR w/ ST 6 (11) , 10(A) Elevation Intense 16:16:37 95 12 96 0 132/84(105) NSR w/ ST 3 (11) , 10(A) Elevation Tolerable 16:21:01 96 24 97 0 138/88(108) NSR w/ ST 3 (11) , 10(A) Elevation Tolerable 16:25:25 93 18 98 0 138/89(115) NSR w/ ST 3 (11) , 10(A) Elevation Tolerable 16:29:50 95 12 98 0 145/100(126) NSR w/ ST 3 (11) , 10(A) Elevation Tolerable Medications Time Medication Route Dose Verified Delivered Reason Notes Effectiveness by by 15:55:02 Oxygen etCO2 3 Anthony Duran used for Nasal l/min St Alan Kelley RN procedure cannula 15:55:09 Heparin Flush added 2 Anthony Cruz used for Bag to bags [facility] procedure (1000units/500ml field MD VARGAS NS) 15:56:06 Lidocaine 2% added 20ml Anthony Cruz for local to vial [facility] anesthetic field MD VARGAS 15:56:58 0.9% NaCl 100 Anthony Prasannaie ml/hr [facility] Alan Kelley RN, MD 15:57:14 Zofran I.V. 4 mg Anthony Duran Per physician [facility] Alan Kelley RN, MD 16:00:20 Versed I.V. 2 mg Anthony Duran for sedation [facility] Alan Kelley RN, MD 16:00:25 Fentanyl I.V. 100 Anthony Duran for sedation mcg [facility] Alan Kelley RN, MD 16:03:10 Heparin Bolus I.V. 3000 Anthony Duran for verif ied units [facility] Alan Kelley RN anticoagulation with dr MD mendoza 16:04:51 Atropine I.V. 2 mg Anthony Duran Per physician Wild at [facility] Alan Kelley RN 22 bpm 16:08:41 Integrilin I.V. 10.2 Anthony Duran Per physician waste d (Bolus 2mg/ml) ml [facility] Alan Kelley RN 9.8 ml MD of vial 16:19:10 Integrilin Drip I.V. 18.2 Anthony Duran for (75mg/100ml) drip ml/hr [facility] Alan Kelley RN antiplatelet MD therapy Procedure Log Time Note 15:43:07 Patient Height : 64.96 inches 15:43:10 Patient Weight : 249.79 lbs 15:43:56 Lab Result : Hemoglobin 16.8 g/dl 15:43:56 Lab Result : Creatinine 1.1 mg/dl 15:43:56 Lab Result : BUN 10 mg/dl 15:44:11 Procedure type changed to Cath procedure, Diagnostic procedure, LHC, LHC w/Coronaries, PCI procedure, AMI/SVG/HALL WORKER PTCA or Stent, PTCA, PTCA Initial 15:54:52 Admit Source: Emergency department 15:55:02 Oxygen 3 l/min etCO2 Nasal cannula was administered by Renee Kelley RN; used for procedure; 15:55:06 ACC Patient presents with STEMI CCS Anginal Class 4--Inability to carry out any physical activity w/o angina. Angina may occur at rest. 15:55:09 Heparin Flush Bag (1000units/500ml NS) 2 bags added to field was administered by Anthony Carl MD; used for procedure; 15:55:13 Procedure Status Emergent Heart Cath (AMI). 15:55:17 Renee Kelley RN sent for patient. Start room use. 15:55:19 Time tracking: Call back (After hours or weekends) 15:55:25 Plan of Care:Hemodynamics will remain stable., Cardiac rhythm will remain stable., Comfort level will be maintained., Respiratory function will remain adequate., Patient/ family verbilizes understanding of procedure., Procedure tolerated without complication., Recovers from procedure without complications.. 15:55:27 Patient arrives emergently. 15:55:34 Patient received from ED to CCL 1 Alert and oriented. Tansferred to table in Supine position. 15:55:36 Signed procedure consent form obtained from patient. 15:55:38 Warm blankets applied, and portillo hugger turned on for patient comfort. 15:55:39 Correct patient and procedure confirmed by team. 15:55:40 ECG and BP/O2 sat monitors applied to patient. 15:55:41 Vital chart was started 15:55:42 Baseline sample Acquired. 15:55:50 Rhythm: sinus rhythm , w/ ST elevation 15:55:52 Full Disclosure recording started 15:56:03 H&P Date Dictated: 01/12/2019 Emergent; H&P N/A. 15:56:05 Pre-procedure instructions explained to patient. 15:56:06 Lidocaine 2% 20ml vial added to field was administered by Anthony Carl MD; for local anesthetic; 15:56:07 Family in waiting room. 15:56:10 Patient NPO since Breakfast. 15:56:24 Patient allergic to Other allergySee Chart 15:56:30 Is the patient allergic to Iodine/contrast media? No. 15:56:32 Was the patient premedicated? Yes 15:56:33 Is patient on blood thinner?Yes 15:56:36 ACC The patient was administered the following blood thiners within the last 24 hours: ACCPlavix 15:56:47 Patient diabetic? No. 15:56:55 Snore? No 15:56:57 Sleep apnea? No 15:56:58 0.9% NaCl 100 ml/hr was administered by Renee Kelley RN; ; 15:57:05 Dentures? No ? 15:57:14 Zofran 4 mg I.V. was administered by Renee Kelley RN; Per physician; 15:57:19 Patient pain scale 10/10 ?. 15:57:26 IV patent on arrival in right forearm with 0.9% NaCl at [facility]. 15:57:34 Lab results completed and on chart. 15:57:38 Right groin area was prepped with chlora-prep and draped in sterile fashion 15:57:40 Sharps counted by scrub and verified by R.N. 15:57:40 Alarms reviewed by R. N. 15:57:42 Physician arrived 15:57:42 Physician paged 15:57:44 Final Timeout: patient, procedure, and site verified with staff and physician. All members of the team are in agreement. 15:57:44 --------ALL STOP TIME OUT------ 15:57:47 Right groin site verified by team. 15:57:52 Fire Safety Assessment: A--An alcohol-based skin anteseptic being used preoperatively., C--Open oxygen or nitrous oxide is being used., D--An ESU, laser, or fiber-optic light is being used. 15:58:05 Physical assessment completed. ASA score P 3 - A patient with severe systemic disease as per Anthony Carl MD. 15:58:15 3a) 45-59 Moderately reduced kidney function. 15:58:40 Maximum allowable contrast dose (3.7 X eGFR X 0.75)155 ml. 15:58:45 Sedation plan: IV Moderate Sedation Medication:Versed, Fentanyl 15:58:49 Use device set Femoral Dx 15:59:28 Bag Decanter (2002S) opened to sterile field. 15:59:29 ACIST Syringe (68916) opened to sterile field. 15:59:30 Medline Cath Pack ([id number]) opened to sterile field. 15:59:32 ACIST Manifold (82120) opened to sterile field. 15:59:32 ACIST Hand Control (90917) opened to sterile field. 15:59:39 INFLATOR Merit BasixCompak (WP2234) opened to sterile field. 15:59:39 CARLA Guide Wire (502-195) opened to sterile field. 15:59:40 SHEATH 6FR [place] (XCN759) opened to sterile field. 15:59:41 WHISPER 300cm guide wire ([id number]) opened to sterile field. 15:59:51 Procedure started. 16:00:20 Versed 2 mg I.V. was administered by Renee Kelley RN; for sedation; 16:00:25 Fentanyl 100 mcg I.V. was administered by Renee Kelley RN; for sedation; 16:00:31 Local anesthetic to right femoral artery with Lidocaine 2% by Anthony Carl MD.INITIAL ACCESS ONLY 16:00:56 A 6 Fr Short sheath was inserted into the Right Femoral artery 16:01:00 j wire advanced. 16:01:47 6 Fr HS1 guide catheter was inserted over the wire 16:02:31 Whisper wire advanced. 16:03:10 Heparin Bolus 3000 units I.V. was administered by Renee Kelley RN; for anticoagulation; verified with dr mendoza 16:03:27 GUIDE 6FR HS I catheter (LA6HSI) opened to sterile field. 16:04:10 Wire advanced across lesion. 16:04:51 Atropine 2 mg I.V. was administered by Renee Kelley RN; Per physician; Wild at 22 bpm 16:05:01 Inflate balloon Inflation number: 1 A EMERGE OTW 3.5 x 15 balloon ([id number]) was prepped and advanced across the Prox RCA 100, then inflated to 7 NASIM for 0:17 (min:sec) . 16:07:53 Inflation number: 2 The EMERGE OTW 3.5 x 15 balloon ([id number]) was reinflated across the Prox RCA , to 10 NASIM for 0:23 (min:sec) . 16:08:41 Integrilin (Bolus 2mg/ml) 10.2 ml I.V. was administered by Renee Kelley RN; Per physician; wasted 9.8 ml of vial 16:10:18 Balloon removed over the wire. 16:12:44 Inflate balloon Inflation number: 3 A EMERGE OTW 4.0 x 20 balloon ([id number]) was prepped and advanced across the Prox RCA 100, then inflated to 8 NASIM for 0:14 (min:sec) 0. 16:13:41 Inflation number: 4 The EMERGE OTW 4.0 x 20 balloon ([id number]) was reinflated across the Prox RCA 0, to 8 NASIM for 0:21 (min:sec) . 16:14:03 Wire removed. 16:14:04 Guide catheter removed. 16:14:14 A DIAGNOSTIC JL 4.0 5Fr catheter ([id number]) was advanced over the wire and used for Procedure. 16:15:44 LCA angiography performed. 16:18:04 Catheter removed. 16:18:17 A DIAGNOSTIC Pigtail 5Fr catheter ([id number]) was advanced over the wire and used for Procedure. 16:18:21 LV gram done using GREENE 16:19:10 Integrilin Drip (75mg/100ml) 18.2 ml/hr I.V. drip was administered by Renee Kelley RN; for antiplatelet therapy; 16:19:24 EF : 55 % 16:: Catheter removed. 16:19:36 EXOSEAL 6Fr (EX600) opened to sterile field. 16:19:57 ACC Pre-intervention CATHLEEN Flow is 0. 16:23:10 Sheath removed intact; hemostasis achieved with Exoseal to the Right Femoral artery. 16:23:13 Procedure ended.(Physican Out) 16::27 Fluoroscopy time 05.10 minutes. 16::33 Fluoroscopy dose: 851 mGy 16::33 Flurop Dose total: 851 16::42 Dose Area Product 05309 mGy/cm. 16::36 Contrast amount:Isovue 370 93ml. 16:24:42 Maximum allowable dose exceeded? No. 16:24:43 ACT drawn and resulted at 207 seconds. (normal therapeutic range 180-240 seconds). 16:24:43 Sharps counted by scrub and verified by R.N. 16:24:46 Insertion/operative site no bleeding no hematoma. 16:24:50 Post right femoral artery:stable 16:24:53 Post Procedure Pulses reassessed and unchanged 16:25:00 Post-procedure physical assessment completed. ASA score P 3 - A patient with severe systemic disease as per Anthony Carl MD. 16:25:05 Post procedure rhythm: sinus rhythm 16:25:09 Estimated blood loss: 10 ml 16:25:11 Post procedure instruction explained to patient.Patient verbalizes understanding. 16:25:43 Procedure and supply charges have been captured, reviewed, submitted and are correct. 16:26:37 Procedure Complication : No complications 16:29:17 Vital chart was stopped 16:29:19 See physician's report for complete and final results. 16:29:24 Report given to CVICU. 16:29:28 Patient transfered to CVICU with Bed. 16::31 Full Disclosure recording stopped 16::31 Procedure ended. 16:29:47 End room use (Document Last) 16:34:04 Renee Kelley RN was relieved by Rufus CHAVEZ(R) as monitoring person Intervention Summary Intervention Notes Time ActionType Lesion and Equipment Action# Pressure Duration Attributes Used 16:05:01 Inflate Prox RCA EMERGE OTW 1 7 00:17 balloon 3.5 x 15 balloon ([id number]) 16:07:53 Reinflate Prox RCA EMERGE OTW 2 10 00:23 balloon 3.5 x 15 balloon ([id number]) 16:12:44 Inflate Prox RCA EMERGE OTW 3 8 00:14 balloon 4.0 x 20 balloon ([id number]) 16:13:41 Reinflate Prox RCA EMERGE OTW 4 8 00:21 balloon 4.0 x 20 balloon ([id number]) Device Usage Item Name Manufacture Quantity Catalog Number Hospital Part Current Min imal Lot# / Charge Number Stock Stock Serial# Code Bag Decanter Microtek 1 [id number] 92431 722427 5 () Medical Inc. ACIST Acist 1 55093 212235 895854 663113 20 Syringe Medical (22420) Systems Inc Medline Cath Medline 1 [id number] 200635 89639 716643 5 Pack ([id number]) ACIST Hand Acist 1 80343 687543 061796 439462 5 Control Medical (12183) Systems Inc ACIST Acist 1 01018 707577 612829 859439 5 Manifold Medical (55719) Systems Inc EMERALD Cardinal 1 502-455 717062 272143 409116 5 Guide Wire Health (502-455) INFLATOR [facility] 1 KF8696 202850 794752 469900 15 [facility] Medical BasixCompak (HW8658) SHEATH 6FR Terumo 1 FUA057 433221 506950 420971 40 [place] (RXQ718) WHISPER Harris 1 [id number] 858858 871002 736251 5 300cm guide Vascular wire (0775584BG) GUIDE 6FR HS Medtronic 1 LA6HSI 817510 65834 920350 1 I catheter (LA6HSI) EMERGE OTW [place] 1 [id number] 340157 449717 104611 5 84021075 3.5 x 15 Scientific balloon ([id number]) EMERGE OTW [place] 1 [id number] 798908 923931 404986 5 14011496 4.0 x 20 Scientific balloon ([id number]) DIAGNOSTIC Cardinal 1 [id number] 997665 262780 187240 10 JL 4.0 5Fr Health catheter (151485K) DIAGNOSTIC Cardinal 1 [id number] 244829 392319 950127 5 Pigtail 5Fr Health catheter ([id number]) EXOSEAL 6Fr Cardinal 1 EX600 902713 875955 170343 10 (EX600) Health Signature Audit [place] Stage Time Signature Unsigned Intra-Procedure 01/12/2019 Rufus Connelly 4:34:49 PM RT(R) Signatures Nurse : Renee Kelley RN Signature : Date : Time : Performing Physician : Signature : Anthony Carl MD Date : Time : Monitor : Claudia Portillo Signature : RT Date : Time : [address] [place] [address]
[~2019-01-12 14:38] MED LIST changes: +HYDROCODON-ACE1 EAC2 PO
[2019-01-12 14:52] LABS: BASOPHILS 0.1 % (0-2); EOSINOPHILS 0.8 % (0-7); HEMATOCRIT 44.4 % (36.0-48.0); HEMOGLOBIN 15.7 g/dL (12-16); IMMATURE GRANULOCYTES 0.3 % (0-5); LYMPHOCYTES 28.9 % (15-50); MCH 34.1 pg (26.0-34.0); MCHC 35.4 g/dL (31.0-37.0); MCV 96.5 fL (80.0-100.0); MEAN PLATELET VOLUME 9.4 fL (7.4-10.4); NEUTROPHILS 60.9 % (40-80); PLATELET COUNT 193 10x3/uL (130-400); RDW 14.3 % (11.5-14.5); WBC 12.3 10x3/uL (4.8-10.8)
[2019-01-12 14:59] LABS: INR 0.99 (0.85-1.17); PROTIME 12.6 SECONDS (11.6-15.0)
[2019-01-12 15:14] LABS: ALBUMIN 3.7 g/dL (3.4-5.0); ALKALINE PHOSPHATASE 98 U/L (46-116); ALT (SGPT) 32 U/L (10-68); CALC OSMOLALITY 270 mosm/kg (275-300); CALCIUM 9.1 mg/dL (8.5-10.1); CARBON DIOXIDE 20.7 mmol/L (21.0-32.0); CHLORIDE - SERUM 100 mmol/L (98-107); CREATININE - SERUM 1.1 mg/dL (0.6-1.3); POTASSIUM - SERUM 3.3 mmol/L (3.5-5.1); PROTEIN - SERUM 7.6 g/dL (6.4-8.2); SODIUM 134 mmol/L (136-145); UREA NITROGEN 10 mg/dL (7-18); eGFR NON AFRICAN AMERICAN 56 mL/min (90-120)
[2019-01-12 15:15] LABS: GLUCOSE 168 mg/dL (74-106)
--- NOTE | 2019-01-12 15:15 | NUR ---
PT STATES SHE IS VOMITING AT THIS TIME. JESSY, BRYON ROWAN.
--- NOTE | 2019-01-12 15:17 | NUR ---
PT RESTING IN BED TALKING WITH AT BEDSIDE.
[2019-01-12 15:25] LABS: CKMB 9.7 U/L (0.0-3.6); CREATINE KINASE 359 UL (21-215); TROPONIN-I 0.018 ng/mL (0.000-0.060)
--- NOTE | 2019-01-12 16:45 | NUR ---
REC'D FROM GRAIN ORIGINATION SPECIALIST VIA BED. AROUSES EASILY TO VERBAL STIMULI. DENIES ANY FURTHER CHEST PAIN. CONNECTED TO BEDSIDE MONITOR AND VS OBTAINED.
[2019-01-12] MEDS ORDERED: TYLENOL #4 W/CO1 TAB PO (17:08)
--- NOTE | 2019-01-12 18:52 | NUR ---
1755: DR. CARRION NOTIFIED OF K+ 3.3. NEW ORDERS REC'D
--- NOTE | 2019-01-12 20:26 | NUR ---
[address] [facility] TIME, PT DENIES COMPLAINTS. 2023 PT C/O GLYNN, PT WAS INFORMED THAT THE NURSE WOULD CALL DR. CARRION. 2026 DR CARRION CALLED BACK WITH NEW ORDERS NOTED
--- NOTE | 2019-01-12 23:41 | NUR ---
2299 REASSESSMENT COMPLETED AT THIS TIME, PT STATES THAT HER HEAD WAS STARING TO HURT A LITTLE BIT, BUT DENIED ANY OTHER COMPLAINTS AT THIS TIME
[2019-01-13] VITALS (10 sets, daily range): BP systolic 130–159; BP diastolic 69–95
--- NOTE | 2019-01-13 01:05 | NUR ---
PT RESTING WITH EYES CLOSED, RESP EVEN NONLABORED, NO DISTRESS NOTED, WILL MONITOR FOR CHANGES
--- NOTE | 2019-01-13 03:28 | NUR ---
0300 REASSESSMENT COMPLETED AT THIS TIME
--- NOTE | 2019-01-13 05:20 | NUR ---
0510 PT ASSISTED UP TO THE BATHROOM. PT VOIDED LARGE AMOUNT OF A DARK MARY URINE. PT C/O SLIGHT DIZZINESS AND WAS ASSISTED BACK TO BED. RT GROIN PUNCTURE SITE EVALUATED, SLIGHT TENDERNESS, NO SWELLING OR PULSATILE MASSES NOTED. SENSATION, MOVEMENT, AND PULSE 2+ TO RIGHT LOWER EXT.
[2019-01-13 05:51] LABS: CALC OSMOLALITY 262 mosm/kg (275-300); CALCIUM 8.3 mg/dL (8.5-10.1); CARBON DIOXIDE 21.7 mmol/L (21.0-32.0); CHLORIDE - SERUM 101 mmol/L (98-107); GLUCOSE 123 mg/dL (74-106); SODIUM 131 mmol/L (136-145); UREA NITROGEN 9 mg/dL (7-18)
[2019-01-13 05:53] LABS: CREATININE - SERUM 0.8 mg/dL (0.6-1.3); POTASSIUM - SERUM 4.3 mmol/L (3.5-5.1); eGFR NON AFRICAN AMERICAN 81 mL/min (90-120)
--- NOTE | 2019-01-13 09:30 | HP ---
PATIENT: CHAD PARKER MEDICAL RECORD: [id number] ACCOUNT: [id number] LOCATION:[facility] : 68 ADMISSION DATE: 01/12/19 PCP: MIRIAM LOCKHART DO HISTORY AND PHYSICAL EXAMINATION HISTORY OF PRESENT ILLNESS: A 48-year-old female with a history of coronary artery disease, status post stent in the right by Dr. 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 PAST MEDICAL HISTORY: Includes, 1. History of hypertension. 2. Hyperlipidemia. 3. Coronary artery disease as described above. 4. Hypothyroidism. MEDICATIONS: Typically include aspirin 81 mg every day, atorvastatin 10 every day, Lipitor 25 every day, Ativan 2 mg at bedtime p.r.n., and Synthroid 125 every day. SOCIAL HISTORY: Smokes about a pack a day. No set exercise program and she takes care of her ADLs. PHYSICAL EXAMINATION: GENERAL: Pleasant female in no acute distress, appears stated age. VITAL SIGNS: Blood pressure 130/82, pulse 75 and regular. HEENT: Normocephalic, atraumatic. NECK: No bruits noted. HEART: Regular. 2/6 systolic ejection murmur. LUNGS: Good air excursion. ABDOMEN: Soft, nontender. EXTREMITIES: Pulse 2+. No edema. IMPRESSION: Acute inferior myocardial infarction. 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 TRANSINT:[id number] Voice Confirmation ID: [id number] DOCUMENT ID: [id number] HANS JULIAN MD at 0930 CC: [id number] DICTATION DATE: 01/12/19 1634 RECTANGULAR TANK COOPER: 01/12/192128 ADM IN [facility] [address] [place] [address]
[2019-01-13] MEDS ORDERED: LIPITOR20 MG PO (10:01)
[2019-01-13] MEDS ORDERED: PLAVIX75 MG PO (10:03)
[2019-01-13] MEDS ORDERED: TOPROL XL50 MG PO (10:04)
[2019-01-13] MEDS ORDERED: BAYER CHEWABLE81 MG PO (10:05)
--- NOTE | 2019-01-13 13:10 | NUR ---
DISCHARGED HOME WITH
--- NOTE | 2019-01-21 13:55 | DS ---
PATIENT:CHAD PARKER :68 MEDICAL RECORD: [id number] DISCHARGE SUMMARY ADMISSION DATE: 01/12/19 DISCHARGE DATE: 01/13/19 DATE OF ADMISSION: 01/12/2019 DATE OF DISCHARGE: 01/13/2019 IMPRESSION: Acute inferior myocardial infarction. BRIEF HISTORY AND HOSPITAL COURSE: Admitted with acute myocardial infarction, found to have a stent thrombosis, delayed thrombosis, underwent intervention, did quite well postoperatively, discharged to home in good condition. 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 Discharged home in good condition. Follow up with myself in 2 to 3 weeks. DIET: AHA diet. ACTIVITY: As tolerated. We will refer to cardiac rehab as outpatient. TRANSINT:[id number] Voice Confirmation ID: [id number] DOCUMENT ID: [id number] HANS JULIAN MD at 1355 CC: [id number] DICTATION DATE: 01/13/19 0935 ENVIRONMENTAL COMPLIANCE OFFICER: 01/13/19 2347 DIS IN 01/13/19 [facility] [address] [place] [address]
--- NOTE | 2019-01-21 13:55 | OP ---
PATIENT NAME: CHAD PARKER MEDICAL RECORD: [id number] :68 LOCATION:[facility] ADMISSION DATE:01/12/19 SURGEON: HANS JULIAN MD DATE OF OPERATION: 01/12/2019 PROCEDURE: Left heart catheterization, selective coronary angiography, plus PTCA stent to the right coronary, right femoral artery approach. PROCEDURE IN DETAIL: A 6-Maori sheath was placed in the right femoral artery. A electric motor repair supervisor film showed totally occluded right coronary at the placement of previously placed stent. Using a hockey stick guide catheter placed 300 cm Whisper wire, 100% occluded right coronary down the distal portion of the vessel. We used a 3.5 x 15 and 4.0 x 20 [place] balloon up to 18 atmospheres. This shows excellent resolution of 100% stenosis, no significant residual. CATHLEEN flow was 3 throughout the procedure. Integrilin was used during the case. FINDINGS: Left ventriculography, 30-degree GREENE view shows inferior basilar hypokinesis. Overall, LV function appears preserved at 50%. CORONARY ANATOMY: LEFT SYSTEM: LAD is free of disease in the diagonal system. CIRCUMFLEX: Free of disease in the marginal system. IMPRESSION: Successful emergent percutaneous transluminal coronary angioplasty stent to totally occluded right. TRANSINT:[id number] Voice Confirmation ID: [id number] DOCUMENT ID: [id number] HANS JULIAN MD at 1355 CC: [id number] DICTATION DATE: 01/12/19 1633 MAILROOM ASSOCIATE: 01/13/19 0153 DIS IN 01/13/19 [facility] [address] [place] [address]
== END 2019-01-13 12:00 | disposition home or self-care (01) | DRG 250 ==
LOC: D.ER 14:38 → D.CVICU 16:54
PROVIDERS: Family Medicine; ADMIT Internal Medicine Interventional Cardiology; ATTEND Internal Medicine Interventional Cardiology
PROC: B2151ZZ Fluoroscopy of Left Heart using Low Osmolar Contrast (ICD-10-PCS; 2019-01-12)
PROC: 4A023N7 Measurement of Cardiac Sampling and Pressure, Left Heart, Percutaneous Approach (ICD-10-PCS; 2019-01-12)
PROC: 02703ZZ Dilation of Coronary Artery, One Artery, Percutaneous Approach (ICD-10-PCS; principal; 2019-01-12 15:55)
PROC: B2111ZZ Fluoroscopy of Multiple Coronary Arteries using Low Osmolar Contrast (ICD-10-PCS; 2019-01-12 15:55)
DX: I97.190 Other postprocedural cardiac functional disturbances following cardiac surgery (principal); I21.A9 Other myocardial infarction type; T82.867A Thrombosis due to cardiac prosthetic devices, implants and grafts, initial encounter; I10 Essential (primary) hypertension; E78.5 Hyperlipidemia, unspecified; I25.10 Atherosclerotic heart disease of native coronary artery without angina pectoris; E03.9 Hypothyroidism, unspecified

== ENCOUNTER → 2019-03-27 08:00 | Outpatient (CLI) | payer OTHER, MEDICAID ==
[2019-01-12 17:12] VITALS: BMI 40.8
[~2019-03-27 08:00] MED LIST changes: +BAYER CHEWABLE81 MG PO; +LIPITOR20 MG PO; +PLAVIX75 MG PO; +TOPROL XL50 MG PO; +TYLENOL #4 W/CO1 TAB PO
--- NOTE | 2019-04-01 13:29 | EC ---
PATIENT:CHAD PARKER DATE OF SERVICE: 03/27/19 SEX: F MEDICAL RECORD: [id number] DATE OF : 68 LOCATION:[facility] AGE OF PATIENT: 48 ADMISSION DATE: 03/27/19 REFERRING PHYSICIAN: INTERPRETING PHYSICIAN: HANS JULIAN MD ECHOCARDIOGRAM REPORT ECHO CHARGES 4 ECHO COMPLETE Date: 03/27/19 CLINICAL DIAGNOSIS: HTN, HX CAD ECHOCARDIOGRAPHIC MEASUREMENTS (adult normal given) AC root (d.<3.7cm) 3.5 cm LV Septum d (<1.2 cm> 1.3 cm Valve Excursion 1.8 cm LV Septum (systole) 1.6 cm Left Atria (s.<4.0cm> 3.3 cm LVPW d(<1.2cm) 1.6 cm RV (d.<2.3cm) 3.4 cm LVPW (sytole) 1.9 cm LV diastole(<5.6CM) 5.1 cm MV E-F(>70mm/sec) cm LV systole 3.7 cm LVOT Diameter 2.3 cm MV exc.(>10mm) 1.9 cm Est.ejection fraction (50-75%) % DOPPLER: LVIT cm/sec A 54.0 cm/sec E 65.0 cm/sec LA cm/sec RVSP 17 mmHg LVOT 95 cm/sec AOP1/2T m/s Asc. Ao 125 cm/sec RVOT 62 cm/sec RA cm/sec PA 94 cm/sec AV Gradient Peak 6.29 mmHg AV Mean 3.19 mmHg AV Area 3.4 cm MV Gradient Peak 3.16 mmHg MV Mean 1.35 mmHg MV Area cm COMMENTS: Housing Inspectors: 2 JOHNATHAN CORTEZ Patient Service Associate: 3 Dr. Hill TAPE# PACS Pericardial Effusion N DATE OF SERVICE: Adequate 2D, color flow, spectral Doppler, and M-mode. Mild LVH. LV internal dimensions are normal. Wall motion is normal. EF is greater than or equal to 55%. Aortic valve is tricuspid. No evidence of stenosis by Doppler interrogation. Left atrium is normal. Mitral valve shows no prolapse. Trace MR. Right-sided chamber is grossly normal. Trace TR. TRANSINT:[id number] Voice Confirmation ID: [id number] DOCUMENT ID: [id number] ECHOCARDIOGRAM REPORT [id number] ELENA,CHAD JULIAN,HANS Padgett MD at 1329 CC: [id number] DICTATION DATE: 03/28/19 1319 MANAGER AUDIT: 03/28/19 1331 DEP CLI 03/27/19 [facility] [address] [place] [address]
== END | disposition home or self-care (01) ==
LOC: D.HCCECHO 08:00
PROVIDERS: ATTEND Internal Medicine Interventional Cardiology
DX: I10 Essential (primary) hypertension (principal)

== ENCOUNTER → 2019-07-10 12:31 | Outpatient (CLI) | payer OTHER, MEDICAID ==
[2019-01-12 17:12] VITALS: BMI 40.8
== END | disposition home or self-care (01) ==
LOC: D.US 12:31
PROVIDERS: ATTEND Nurse Practitioner Adult Health
DX: M79.605 Pain in left leg (principal)

== ENCOUNTER → 2019-08-23 10:00 | Outpatient (CLI) | payer OTHER, MEDICAID ==
[2019-01-12 17:12] VITALS: BMI 40.8
== END | disposition home or self-care (01) ==
LOC: D.MAMMO 08-20 15:15
PROVIDERS: ATTEND Family Medicine
DX: Z12.31 Encounter for screening mammogram for malignant neoplasm of breast (principal)

== ENCOUNTER 2019-09-29 18:08 | Emergency (ER) | payer OTHER, MEDICAID ==
[~2019-09-29] VITALS: Ht 165.1 cm; Wt 99.1 kg
[2019-09-29 18:11] VITALS: Ht 165.1 cm; Wt 99.1 kg
[2019-09-29 18:39] LABS: BASOPHILS 0.1 % (0-2); EOSINOPHILS 1.8 % (0-7); HEMATOCRIT 44.1 % (36.0-48.0); HEMOGLOBIN 14.6 g/dL (12-16); IMMATURE GRANULOCYTES 0.4 % (0-5); LYMPHOCYTES 33.4 % (15-50); MCH 32.7 pg (26.0-34.0); MCHC 33.1 g/dL (31.0-37.0); MCV 98.9 fL (80.0-100.0); MEAN PLATELET VOLUME 9.7 fL (7.4-10.4); MONOCYTES 11.1 % (2-11); NEUTROPHILS 53.2 % (40-80); PLATELET COUNT 216 10x3/uL (130-400); RBC 4.46 10x6/uL (4.00-5.40); RDW 13.1 % (11.5-14.5)
[2019-09-29 18:52] LABS: CALC OSMOLALITY 279 mosm/kg (275-300); CALCIUM 8.9 mg/dL (8.5-10.1); CARBON DIOXIDE 24.1 mmol/L (21.0-32.0); CHLORIDE - SERUM 106 mmol/L (98-107); CREATININE - SERUM 1.1 mg/dL (0.6-1.3); GLUCOSE 112 mg/dL (74-106); POTASSIUM - SERUM 4.3 mmol/L (3.5-5.1); SODIUM 140 mmol/L (136-145); UREA NITROGEN 13 mg/dL (7-18); eGFR NON AFRICAN AMERICAN 56 mL/min (90-120)
[2019-09-29 19:10] LABS: ALBUMIN 3.5 g/dL (3.4-5.0); ALKALINE PHOSPHATASE 110 U/L (30-120); ALT (SGPT) 27 U/L (10-68); BILIRUBIN - TOTAL 0.27 mg/dL (0.2-1.3); CKMB 7.3 U/L (0.0-3.6); CREATINE KINASE 333 UL (21-215); PRO BNP 98 pg/mL (0-125); PROTEIN - SERUM 7.3 g/dL (6.4-8.2)
[2019-09-29 19:11] LABS: TROPONIN-I < 0.017 ng/mL (0.000-0.060)
[2019-09-29] MEDS ORDERED: VALIUM 2 MG TAB2 MG PO (20:48)
[2019-09-29] MEDS ORDERED: EC-NAPROSYN500 MG PO (20:48)
[2019-09-29] MEDS ORDERED: PREDNISONE10 MG PO (20:48)
[2019-09-29 21:18] VITALS: BP 132/89
== END 2019-09-29 21:18 | disposition home or self-care (01) ==
LOC: D.ER 18:08
PROVIDERS: Emergency Medicine
DX: S20.212A Contusion of left front wall of thorax, initial encounter (principal); E07.9 Disorder of thyroid, unspecified; I10 Essential (primary) hypertension; I25.2 Old myocardial infarction; K21.9 Gastro-esophageal reflux disease without esophagitis; R07.9 Chest pain, unspecified

== ENCOUNTER 2019-12-06 05:07 | Observation (INO) | payer OTHER, MEDICAID ==
[~2019-12-06] VITALS: Ht 165.1 cm; Wt 110.2 kg
--- NOTE | ~2019-12-06 | OP ---
PATIENT NAME: CHAD PARKER MEDICAL RECORD: [id number] :68 LOCATION:D.M2 D.2124 ADMISSION DATE:12/06/19 SURGEON: HANS JULIAN MD DATE OF OPERATION: 12/06/2019 PROCEDURE: Left heart catheterization, selective coronary angiography, right femoral artery approach. CATHETERS: A 5-German sheath, 5/4 left and right Odilia, 5/4 pig. The procedure was well tolerated. The patient returned to chan. Sheath removed. ExoSeal device placed. FINDINGS: Left ventriculography in 30-degree GREENE view shows inferior apical hypokinesis. Overall, LV function is well preserved at 50% or better. CORONARY ANATOMY: LEFT MAIN: Left main is free of disease. LAD: LAD is free of disease in the diagonal system. CIRCUMFLEX: Free of disease in the marginal system. RIGHT CORONARY ARTERY: Occluded with proximal placed stent with good left to right collaterals. IMPRESSION: Single-vessel disease at this point. LV function remains normal. Medical management. Good prognosis. TRANSINT:[id number] Voice Confirmation ID: [id number] DOCUMENT ID: [id number] HANS JULIAN MD CC: [id number] DICTATION DATE: 12/06/19 1344 DECISION ANALYST: 12/06/19 2151 DIS IN 12/06/19 [facility] [address] [place] [address]
--- NOTE | ~2019-12-06 | CN ---
PATIENT NAME:CHAD PARKER MEDICAL RECORD: [id number] : 68 LOCATION:D. D.2124 ADMIT DATE: 12/06/19 ACCOUNT: [id number] CONSULTING PHYSICIAN: HANS JULIAN MD REFERRING PHYSICIAN: WILL COATES DO DATE OF CONSULTATION: 12/06/2019 HISTORY OF PRESENT ILLNESS: A 49-year-old female with known history of coronary artery disease, status post inferior myocardial infarction, subsequent intervention at that time. She has history of hypertension, hyperlipidemia, about a 2-week history of progressive chest tightness and pressure with exertion, awoken with class IV symptomatology from sleep last night, radiating to the jaw accompanied by shortness of breath and nausea. We are asked to see her concerning her cardiovascular status. PAST MEDICAL HISTORY: Includes; 1. History of hypertension. 2. Hyperlipidemia. 3. Hypothyroidism, on replacement. ALLERGIES: INCLUDE SULFA, ERYTHROMYCIN, TRIMETHOPRIM AND LATEX. MEDICATIONS: Include Synthroid 125 mcg every day, amlodipine 5 mg every day, metoprolol 50 every day, atorvastatin 20 every day, Plavix 75 every day, aspirin 81 every day. SOCIAL HISTORY: Nonsmoker, nondrinker. Easily takes care of all her ADLs, does exercise on a regular basis typically. REVIEW OF SYSTEMS: The patient reports easy bruising but reports no swollen glands. The patient reports no fever, no night sweats, no significant weight gain, no significant weight loss. No significant exercise tolerance. The patient reports no dry eyes, no irritation, no vision change. Patient reports no difficulty hearing and no ear pain. Patient reports no frequent nose bleeds or nose and sinus problems. Patient reports on arm pain on exertion. No shortness of breath while lying down. No history of heart murmur. Patient reports no cough, no wheezing or coughing up blood. Patient reports no abdominal pain, no vomiting. Normal appetite. No diarrhea and not vomiting blood. No nausea and no constipation. Patient reports no incontinence. No difficulty urinating. No hematuria. No increased frequency. Patient reports no muscle aches. No weakness, no arthralgias, no back pain. No swelling of the extremities. Patient reports no abnormal mole, no jaundice, no rashes. Reports no loss of consciousness. No weakness and no numbness. No seizures, dizziness, or headaches. The patient reports no depression, no sleep disturbance, feeling safe in a relationship and no alcohol abuse. Patient reports on fatigue. Reports no runny nose or sinus pressure. No itching, no hives, and no frequent sneezing. PHYSICAL EXAMINATION: GENERAL: No acute distress, appears stated age. VITAL SIGNS: Blood pressure 139/77, pulse 97, regular. HEENT: Normocephalic, atraumatic. NECK: No JVD or bruit. HEART: Regular, II/ systolic ejection murmur, questionable S4 gallop. LUNGS: Good air excursion. CONSULT REPORT [id number] CHAD PARKER ABDOMEN: Soft, nontender. EXTREMITIES: Pulses 2+ with no edema. DIAGNOSTIC DATA: EKG shows nonspecific ST-T changes. IMPRESSION: Acute coronary syndrome. No history of coronary artery disease, multiple risk factors. PLAN: For angiography, intervention based on the above. TRANSINT:[id number] Voice Confirmation ID: [id number] DOCUMENT ID: [id number] HANS JULIAN MD CC: [id number] DICTATION DATE: 12/06/19838 DIVERSIFIED CROPS SUPERVISOR: 12/06/19 1629 ADM IN [facility] [address] [place] [id number]
--- NOTE | ~2019-12-06 | HEMODYNAMI ---
PATIENT:CHAD PARKER MEDICAL RECORD: [id number] : 68 LOC[facility] D.2124 [id number] ADMISSION DATE: 12/06/19 Generatedon:12/06/201913:38 Patient name: CHAD PARKER Patient #: [id number] SSN: : 1970 Date of study: 12/06/2019 Page: Of Hemodynamic Procedure Report Patient Data Patient Demographics Procedure consent was obtained First Name: CHAD Gender: Female Last Name: ELENA : 1970 Middle Initial: MAE Age: 49 year(s) Patient #: [id number] Race: Unknown Additional ID: [id number] Contact details [address]: [address] [place] [address] State: [place] City: [place] Zip code: [address] Past Medical History Allergies Allergen Reaction Date Comments Reported Other 08/10/2018 BACTRIM, ERYTHROMYCIN, PEPCID,FLONASE, allergy DILAUDID, SULFA, LATEX Other 01/12/2019 See Chart allergy Other 12/06/2019 sulfa,rubber,famotidine,hydromorphone, allergy sulfamethoxazole, fluticasone Admission Admission Data Admission Date: 12/06/2019 Admission Time: 6:05 Room #: D.2124 Insurance Payor: Private health insurance Height (in.): 65 BSA: 2.15 (m2) Height (cm.): 165.1 BMI: 40.6 (kg/m2) Weight (lbs.): 244 Weight (kg.): 110.68 Medications upon Admission Medications Dosage Times Administered Last Remarks per Delivery Day Date and Time CHARANJIT Inhibitor (any) Current Diagnosis Diagnosis Description Unstable angina Lab Results Lab Result Date: 12/06/2019 Lab Result Time: 0:00 Biochemistry Name Units Result Min Max Creatinine mg/dl 1.1 --(--*-)-- 0.6 1.3 eGFR ml/min 56 *-(----)-- 90 120 NONAFRICAN CBC Name Units Result Min Max Hematocrit % 44.5 --(*---)-- 42 54 Hemoglobin g/dl 14.6 --(-*--)-- 13.5 17.5 Procedure Procedure Types Cath Procedure Diagnostic Procedure [facility] w/Coronaries Procedure Description Procedure Date Procedure Date: 12/06/2019 Procedure Start Time: 13:24 Procedure End Time: 13:35 Procedure Staff Name Function Anthony Carl MD Performing Physician Yasmeen Barrios RT Monitor Liliane Santiago RT Monitor Claudia Portillo RT Scrub Adelia Lunsford RN Nurse Procedure Data Cath Procedure Fluoroscopy Diagnostic fluoroscopy Total fluoroscopy Time: 1.3 time: 1.3 min min Diagnostic fluoroscopy Total fluoroscopy dose: 549 dose: 549 mGy mGy Contrast Material Contrast Material Type Amount (ml) Isovue 300 42 Entry Location Entry Primary Successful Side Size Upsize Upsize Entry Closure Succes sful Closure Location (Fr) 1 (Fr) 2 (Fr) Remarks Device Remarks Femoral Right 5 Fr Exoseal artery Estimated blood loss: 5 ml Diagnostic catheters Device Type Used For End Catheter Placement MULTIPACK JL 4.0 5Fr Procedure catheter MULTIPACK 3DRC 5Fr Procedure catheter MULTIPACK Pigtail 5 Fr Procedure catheter Procedure Complications No complications Procedure Medications Medication Administration Route Dosage 0.9% NaCl I.V. 100 ml/hr Oxygen etCO2 Nasal cannula 2 l/min Lidocaine 2% added to field 20 Heparin Flush Bag added to field 2 bags (1000units/500ml NS) Versed I.V. 2 mg Fentanyl I.V. 50 mcg Versed I.V. 2 mg Fentanyl I.V. 50 mcg Hemodynamics Rest BSA: 2.15 (m2) HGB: 14.6 (g/dl) O2 Consumption: Estimated: 214.7 (ml/min) O2 Con sumption indexed: Estimated:99.86 (ml/min/m) Heart Rate: 75 (bpm) Pressure Samples Time Site Value (mmHg) Purpose Heart Use Rate(bpm) 13:32 LV 110/10,14 Snapshot 78 Gradients Valve Time Site Site Mean SEP/DFP Peak To Heart Use 1 2 (mmHg) (sec/min) Peak Rate (mmHg) (bpm) Aortic 13:32 LV AO 77 Snapshots Pre Cath Intra NCS Post Cath Vital Signs Time Heart Resp SPO2 etCO2 NIBP Rhythm Pain Sedation Rate (ipm) (%) (mmHg) (mmHg) Status Level (bpm) 13:13:10 72 20 96 30.7 123/75(98) NSR 0 (11) 10(A) , No pain 13:17:29 75 18 97 30 108/70(85) NSR 0 (11) 10(A) , No pain 13:21:49 74 18 97 29.2 108/66(84) NSR 0 (11) 10(A) , No pain 13:26:07 73 19 96 34.5 112/70(84) NSR 0 (11) 10(A) , No pain 13:30:27 70 16 97 27 112/67(82) NSR 0 (11) 10(A) , No pain 13:34:45 74 19 95 35.3 113/72(88) NSR 0 (11) 10(A) , No pain Medications Time Medication Route Dose Verified Delivered Reason Notes Eff ectiveness by by 13:10:15 0.9% NaCl I.V. 100 Anthony Adelia used for ml/hr Meseret Jonn procedure MD DAVILA 13:10:23 Oxygen etCO2 2 Anthony Adelia used for Nasal l/min Meseret Jonn procedure cannula MD DAVILA 13:10:28 Lidocaine 2% added 20ml Anthony Anthony for local to vial Kenefic Meseret anesthetic field MD VARGAS 13:10:33 Heparin Flush added 2 Anthony Anthony used for Bag to bags [facility] procedure (1000units/500ml field MD VARGAS NS) 13:24:05 Versed I.V. 2 mg Anthony Adelia for Meseret Jonn sedation MD DAVILA 13:24:10 Fentanyl I.V. 50 Anthony Adelia for mcg Meseret Jonn sedation MD DAVILA 13:29:32 Versed I.V. 2 mg Anthony Adelia for Meseret Jonn sedation MD DAVILA 13:29:37 Fentanyl I.V. 50 Anthony Adelia for mcg Meseret Jonn sedation filling hauler Log Time Note 12:55:08 Informed consent obtained and on chart 12:55:53 Liliane Santiago RT(R) sent for patient. Start room use. 12:56:01 ACC Patient presents with Unstable Angina CCS Anginal Class 2--Slight limitation of ordinary activity. 12:56:37 Time tracking: Regular hours (M-F 7:00 - 5:00) 12:56:41 Plan of Care:Hemodynamics will remain stable., Cardiac rhythm will remain stable., Comfort level will be maintained., Respiratory function will remain adequate., Patient/ family verbilizes understanding of procedure., Procedure tolerated without complication., Recovers from procedure without complications.. 12:56:47 Full Disclosure recording started 12:56:52 H&P Date Dictated: 12/06/2019 ER History on chart.. 12:56:57 Patient NPO since Midnight. 12:58:33 Patient allergic to Other allergysulfa,rubber,famotidine,hydromorphone, sulfamethoxazole, fluticasone 12:58:36 Is the patient allergic to Iodine/contrast media? No. 12:58:38 Was the patient premedicated? N/A 12:58:52 Is patient on blood thinner?Yes 13:00:25 ACC The patient was administered the following blood thiners within the last 24 hours: ACCPlavix 13:00:55 Patient diabetic? No. 13:00:56 If diabetic: On Metformin? N/A 13:00:59 Patient not . Patient has had hysterectomy. 13:01:44 Insurance Payor : Private health insurance 13:01:53 Patient Weight : 244 lbs 13:01:57 Patient Height : 65 inches 13:02:06 Current Diagnosis : Unstable angina 13:02:35 Lab Result : Hematocrit 44.5 % 13:02:35 Lab Result : eGFR NONAFRICAN 56 ml/min 13:02:35 Lab Result : Creatinine 1.1 mg/dl 13:02:35 Lab Result : Hemoglobin 14.6 g/dl 13:03:01 Diagnostic Cath Status : Urgent 13:03:13 Stress Test: no; N/A ? 13:04:01 Patient received from Med II to CCL 1 Alert and oriented. Tansferred to table in Supine position. 13:04:02 Warm blankets applied, and portillo hugger turned on for patient comfort. 13:04:03 Correct patient and procedure confirmed by team. 13:04:03 ECG and BP/O2 sat monitors applied to patient. 13:04:07 Pre-procedure instructions explained to patient. 13:04:11 Pre-op teaching completed and patient verbalized understanding. 13:04:51 IV patent on arrival in left forearm with 0.9% NaCl at KVO. 13:06:04 Risk of Mortality: 0.1 13:06:06 Risk of blood transfusion: 0.7 13:06:08 Risk of HAKEEM: 0.3 13:06:30 Pre procedure: right dorsailis pedis pulse 2+ Normal; easily identifiable; not easily obliterated 13:06:33 Modified Alon's test Radial > 7 seconds. 13:06:36 Patient pain scale 0/10 ?. 13:06:44 Right groin area was prepped with chlora-prep and draped in sterile fashion 13:06:53 Alarms reviewed by R. N. 13:06:53 Sharps counted by scrub and verified by R.N. 13:07:05 Previous problem with sedation/anesthesia? No ? 13:07:07 Snore? No 13:07:09 Sleep apnea? No 13:07:11 Deviated septum? No 13:07:12 Opens mouth fully? Yes 13:07:14 Sticks out tongue? Yes 13:07:16 Airway obstruction? No ? 13:07:20 Dentures? No ? 13:07:29 Use device set Femoral Dx 13:07:30 ACIST Syringe (39250) opened to sterile field. 13:07:30 Bag Decanter (2002S) opened to sterile field. 13:07:32 Medline Cath Pack ([id number]) opened to sterile field. 13:07:34 DIAGNOSTIC Multipack 5Fr catheter set ([id number]) opened to sterile field. 13:07:37 ACIST Hand Control (94528) opened to sterile field. 13:07:38 ACIST Manifold (29008) opened to sterile field. 13:07:40 EMERALD Guide Wire (381-955) opened to sterile field. 13:07:40 SHEATH 5FR [place] (CCY193) opened to sterile field. 13:09:56 Baseline sample Acquired. 13:10:01 Rhythm: sinus rhythm 13:10:08 Vital chart was started 13:10:15 0.9% NaCl 100 ml/hr I.V. was administered by Adelia Lunsford RN; used for procedure; Verbal order read back and verified. 13:10:23 Oxygen 2 l/min etCO2 Nasal cannula was administered by Adelia Lunsford RN; used for procedure; Verbal order read back and verified. 13:10:28 Lidocaine 2% 20ml vial added to field was administered by Anthony Carl MD; for local anesthetic; Verbal order read back and verified. 13:10:33 Heparin Flush Bag (1000units/500ml NS) 2 bags added to field was administered by Anthony Carl MD; used for procedure; Verbal order read back and verified. 13:19:17 --------ALL STOP TIME OUT------ 13:19:17 Final Timeout: patient, procedure, and site verified with staff and physician. All members of the team are in agreement. 13:19:18 Right groin site verified by team. 13:19:21 Fire Safety Assessment: A--An alcohol-based skin anteseptic being used preoperatively., C--Open oxygen or nitrous oxide is being used., D--An ESU, laser, or fiber-optic light is being used. 13:19:27 Physical assessment completed. ASA score P 2 - A patient with mild systemic disease as per Anthony Carl MD. 13:19:40 3a) 45-59 Moderately reduced kidney function. 13:19:51 Maximum allowable contrast dose (3.7 X eGFR X 0.75)155 ml. 13:19:55 Sedation plan: IV Moderate Sedation Medication:Versed, Fentanyl 13:23:18 Zero performed for pressure channel P1 13:24:01 Procedure started. 13:24:05 Versed 2 mg I.V. was administered by Adelia Lunsford RN; for sedation; Verbal order read back and verified. 13:24:10 Fentanyl 50 mcg I.V. was administered by Adelia Lunsford RN; for sedation; Verbal order read back and verified. 13:24:27 Local anesthetic to right femoral artery with Lidocaine 2% by Anthony Carl MD.INITIAL ACCESS ONLY 13:27:50 A 5 Fr sheath was inserted into the Right Femoral artery 13:27:56 A MULTIPACK JL 4.0 5Fr catheter was advanced over the wire and used for Procedure. 13:29:21 LCA angiography performed. 13:29:32 Versed 2 mg I.V. was administered by Adelia Lunsford RN; for sedation; Verbal order read back and verified. 13:29:37 Fentanyl 50 mcg I.V. was administered by Adelia Lunsford RN; for sedation; Verbal order read back and verified. 13:29:39 Catheter removed. 13:29:53 A MULTIPACK 3DRC 5Fr catheter was advanced over the wire and used for Procedure. 13:31:06 RCA angiography performed. 13:31:07 ACCDominant side:Left 13:31:35 Catheter removed. 13:31:43 A MULTIPACK Pigtail 5 Fr catheter was advanced over the wire and used for Procedure. 13:32:02 LV gram done using GREENE 13:32:13 LV hemodynamics recorded. 13:32:16 Injector settings: Ml/sec: 10, Volume: 20, 13:32:25 EF : 55 % 13:32:39 Catheter removed. 13:33:15 EXOSEAL 5Fr (EX500) opened to sterile field. 13:33:30 Sheath removed intact; hemostasis achieved with Exoseal to the Right Femoral artery. 13:33:34 Procedure ended.(Physican Out) 13:33:44 Contrast amount:Isovue 300 42ml. 13:33:51 Fluoroscopy time 01.30 minutes. 13:33:55 Flurop Dose total: 549 13:33:55 Fluoroscopy dose: 549 mGy 13:34:02 Dose Area Product 02559 mGy/cm. 13:34:10 Post-procedure physical assessment completed. ASA score P 2 - A patient with mild systemic disease as per Anthony Carl MD. 13:34:27 Post procedure rhythm: sinus rhythm 13:34:29 Estimated blood loss: 5 ml 13:34:30 Post procedure instruction explained to patient.Patient verbalizes understanding. 13:34:31 Patient needs reinforcement of post procedure teaching. 13:35:29 Procedure and supply charges have been captured, reviewed, submitted and are correct. 13:35:32 Procedure Complication : No complications 13:35:34 Vital chart was stopped 13:35:35 [facility] Findings: mild to moderate CAD (<70%) 13:35:37 Operative report dictated upon procedure completion. 13:35:37 See physician's report for complete and final results. 13:35:40 Report given to Med II. 13:35:42 Patient transfered to Med II with Bed. 13:35:45 Procedure ended. 13:35:45 Full Disclosure recording stopped 13:35:48 End room use (Document Last) Device Usage Item Name Manufacture Quantity Catalog Hospital Part Current Minimal L ot# / Number Charge Number Stock Stock Serial# Code ACIST Acist 1 87436 [id number] 20 Syringe Medical (65370) Systems Inc Bag Microtek 1 257545 08450 896842 5 Decanter Medical Inc. () Medline Medline 1 [id number] [id number] 75881 743648 5 Cath Pack ([id number]) DIAGNOSTIC Cardinal 1 [id number] 756224 71952 301847 30 Multipack Health 5Fr catheter set ([id number]) ACIST Hand Acist 1 10523 556079 227089 670763 5 Control Medical (62724) Systems Inc ACIST Acist 1 90867 443023 434712 038411 5 Manifold Medical (10121) Systems Inc EMERALD Cardinal 1 502-455 318109 967416 028797 5 Guide Wire Health (502-455) SHEATH 5FR Terumo 1 SSU204 456730 773103 277949 5 [place] (OOU301) MULTIPACK Cardinal 1 651900 5 JL 4.0 5Fr Health catheter MULTIPACK Cardinal 1 [id number] 5 3DRC 5Fr Health catheter MULTIPACK Cardinal 1 021952 5 Pigtail 5 Health Fr catheter EXOSEAL 5Fr Cardinal 1 EX500 229310 114388 023676 10 (EX500) Health Signature Audit [place] Stage Time Signature Unsigned Intra-Procedure 12/06/2019 Liliane Santiago 1:37:41 PM RT(R) Intra-Procedure 12/06/2019 Adelia Lunsford 1:38:02 PM RN Intra-Procedure 12/06/2019 Anthony Cisneros 1:38:20 PM Alan VARGAS [place] [id number] [place] [address]
[~2019-12-06 05:07] MED LIST changes: +EC-NAPROSYN500 MG PO; +PREDNISONE10 MG PO; +VALIUM 2 MG TAB2 MG PO
[2019-12-06 05:35] LABS: CALC OSMOLALITY 275 mosm/kg (275-300); CALCIUM 8.7 mg/dL (8.5-10.1); CARBON DIOXIDE 24.6 mmol/L (21.0-32.0); CHLORIDE - SERUM 103 mmol/L (98-107); CREATININE - SERUM 1.1 mg/dL (0.6-1.3); POTASSIUM - SERUM 4.1 mmol/L (3.5-5.1); SODIUM 136 mmol/L (136-145); UREA NITROGEN 12 mg/dL (7-18); eGFR NON AFRICAN AMERICAN 56 mL/min (90-120)
[2019-12-06 05:36] LABS: GLUCOSE 174 mg/dL (74-106)
[2019-12-06 05:37] LABS: APTT 29.3 SECONDS (22.8-39.4); INR 0.95 (0.85-1.17); PROTIME 12.6 SECONDS (11.6-15.0)
[2019-12-06 05:38] LABS: BASOPHILS 0.2 % (0-2); HEMATOCRIT 44.5 % (36.0-48.0); HEMOGLOBIN 14.6 g/dL (12-16); IMMATURE GRANULOCYTES 0.2 % (0-5); LYMPHOCYTES 33.1 % (15-50); MCH 32.5 pg (26.0-34.0); MCHC 32.8 g/dL (31.0-37.0); MCV 99.1 fL (80.0-100.0); MEAN PLATELET VOLUME 9.9 fL (7.4-10.4); MONOCYTES 9.7 % (2-11); NEUTROPHILS 54.8 % (40-80); RBC 4.49 10x6/uL (4.00-5.40); RDW 13.2 % (11.5-14.5); WBC 6.6 10x3/uL (4.8-10.8)
[2019-12-06 05:44] LABS: PLATELET COUNT 171 10x3/uL (130-400)
[2019-12-06 05:52] LABS: ALBUMIN 3.5 g/dL (3.4-5.0); ALKALINE PHOSPHATASE 118 U/L (30-120); ALT (SGPT) 27 U/L (10-68); BILIRUBIN - TOTAL 0.36 mg/dL (0.2-1.3); CKMB 8.7 U/L (0.0-3.6); CREATINE KINASE 361 UL (21-215); LIPASE 125 U/L (73-393); MAGNESIUM - SERUM 1.9 mg/dL (1.8-2.4); PRO BNP 38 pg/mL (0-125); PROTEIN - SERUM 7.3 g/dL (6.4-8.2)
[2019-12-06 05:54] LABS: TROPONIN-I < 0.017 ng/mL (0.000-0.060)
[2019-12-06 06:18] VITALS: BP 123/82
--- NOTE | 2019-12-06 07:10 | NUR ---
NEW PATIENT ADMIT FROM ER VIA WC ACCOMPAINED BY FMILY MEMBER AND HODPITAL STAFF. PATIENT TRANSFERRED TO BE WITHOUT DIFFICULTY. PATIENT IS ALERT AND ORIENTED X 4. PATIENT DENIES ANY NEEDS OR PAIN. ASSESSEMENT COMPLETED. PATIENT ORIENTED TO ROOM AND CALL LIGHT. PATIENT WIPED DOWN WITH HIBICLENS WIPES AND CONSENTS SIGNED AND ON THE CHART. WILL CONTINUE WITH PLAN OF CARE. SR UP X 2 BED IN LOW POSITION AND CALL LIGHT IN REACH.
[2019-12-06] MEDS ORDERED: NORVASC5 MG PO (07:50)
[2019-12-06] MEDS ORDERED: CITRACAL + D E1 EACH PO (07:51)
[2019-12-06 07:52] VITALS: BP 139/77; BMI 40.5
[2019-12-06 08:57] LABS: CHOL - HDL RATIO 3.6 ratio (2.3-4.1); LDL-HDL RATIO 2.1 ratio (1.5-3.5)
[2019-12-06 10:01] VITALS: BP 139/77
--- NOTE | 2019-12-06 11:07 | NUR ---
PATIENT IS STABLE AND VSS. PATIENT DENIES ANY NEEDS OR PAIN. PER PHONE CALL FROM HIGH SPEED OPERATOR TEAM, PATIENT PRE OP ACCORDING TO MAR ORDERS. PATIENT TOLERATED WELL. WILL CONTINUE TO MONITOR. SR UP X 2 BED IN LOW POSITION AND CALL LIGHT IN REACH.
[2019-12-06 13:44] VITALS: Ht 165.1 cm; Wt 110.2 kg
[2019-12-06] MEDS ORDERED: NAPROSYN500 MG PO (16:48)
== END 2019-12-06 17:46 | disposition home or self-care (01) ==
LOC: D.ER 05:07 → D.M2 06:05 → OBSVTIME 06:05 → D.M2 06:05
PROVIDERS: Family Medicine; Internal Medicine Interventional Cardiology; ADMIT Family Medicine; ATTEND Family Medicine
DX: I25.110 Atherosclerotic heart disease of native coronary artery with unstable angina pectoris (principal); I10 Essential (primary) hypertension; K21.9 Gastro-esophageal reflux disease without esophagitis; M19.90 Unspecified osteoarthritis, unspecified site; M87.9 Osteonecrosis, unspecified; G89.29 Other chronic pain; F17.203 Nicotine dependence unspecified, with withdrawal; F41.8 Other specified anxiety disorders; Z85.43 Personal history of malignant neoplasm of ovary; E03.9 Hypothyroidism, unspecified; E78.5 Hyperlipidemia, unspecified; I24.9 Acute ischemic heart disease, unspecified

== ENCOUNTER → 2020-08-28 07:27 | Outpatient (CLI) | payer MEDICARE, MEDICAID ==
[2019-12-06 13:44] VITALS: BMI 40.4
[~2020-08-28 07:27] MED LIST changes: +CITRACAL + D E1 EACH PO; +NAPROSYN500 MG PO; +NORVASC5 MG PO
== END | disposition home or self-care (01) ==
LOC: D.MRI 07:27
PROVIDERS: ATTEND Clinical Nurse Specialist Family Health
DX: M25.561 Pain in right knee (principal)

== ENCOUNTER → 2020-09-17 07:57 | Outpatient (CLI) | payer MEDICARE, MEDICAID ==
[2019-12-06 13:44] VITALS: BMI 40.4
== END | disposition home or self-care (01) ==
LOC: D.CT 07:57
PROVIDERS: ATTEND Clinical Nurse Specialist Family Health
DX: S92.354A Nondisplaced fracture of fifth metatarsal bone, right foot, initial encounter for closed fracture (principal)